=== PATIENT | male | born 1965 | race Caucasian/White ===

== ENCOUNTER 2019-01-22 06:31 | Inpatient (IN) | payer OTHER ==
[2019-01-22] VITALS (17 sets, daily range): BP systolic 91–122; BP diastolic 61–78
[~2019-01-22] VITALS: Ht 165 cm; Wt 90.8 kg
[2019-01-22] MEDS ORDERED: LACTATED RINGERS 1,000 ML IV ONE (06:40)
[2019-01-22 06:56] LABS: BASOPHILS % (AUTO) 0 % (0-10); EOSINOPHILS # (AUTO) 0.1 10^3/uL (0.0-0.3); EOSINOPHILS % (AUTO) 2 % (0-10); HEMATOCRIT 30 % (40-54); HEMOGLOBIN 9.6 G/DL (13.3-17.7); LYMPHOCYTES # (AUTO) 1.9 X 10^3 (1.0-4.0); LYMPHOCYTES % (AUTO) 23 % (12-44); MEAN CORPUSCULAR HEMOGLOBIN 29 PG (25-34); MEAN CORPUSCULAR HGB CONC 32 G/DL (32-36); MEAN CORPUSCULAR VOLUME 90 FL (80-99); MEAN PLATELET VOLUME 9.2 FL (7.4-10.4); MONOCYTES # (AUTO) 1.1 X 10^3 (0.0-1.0); MONOCYTES % (AUTO) 13 % (0-12); NEUTROPHILS # (AUTO) 5.1 X 10^3 (1.8-7.8); NEUTROPHILS % (AUTO) 62 % (42-75); PLATELET COUNT 167 10^3/uL (130-400); RED CELL DISTRIBUTION WIDTH 13.2 % (10.0-14.5); WHITE BLOOD COUNT 8.2 10^3/uL (4.3-11.0)
[2019-01-22] MEDS ORDERED: KETOROLAC 30 MG/ML VIAL IVP STA (07:08)
[2019-01-22 07:09] LABS: INR 1.1 (0.8-1.4); PROTHROMBIN TIME PATIENT 14.4 SEC (12.2-14.7)
[2019-01-22 07:15] LABS: ALANINE AMINOTRANSFERASE 16 U/L (0-55); ALBUMIN 3.6 GM/DL (3.2-4.5); ALKALINE PHOSPHATASE 129 U/L (40-136); AMYLASE 86 U/L (25-125); BILIRUBIN,TOTAL 0.7 MG/DL (0.1-1.0); BUN/CREATININE RATIO 22; CALCIUM 8.2 MG/DL (8.5-10.1); CARBON DIOXIDE 26 MMOL/L (21-32); CHLORIDE 100 MMOL/L (98-107); CREATININE SERUM 0.95 MG/DL (0.60-1.30); GFR ESTIMATED > 60; GLUCOSE 134 MG/DL (70-105); LIPASE 53 U/L (8-78); MAGNESIUM 2.3 MG/DL (1.6-2.4); POTASSIUM 3.8 MMOL/L (3.6-5.0); SODIUM 136 MMOL/L (135-145); TOTAL PROTEIN 6.9 GM/DL (6.4-8.2)
--- NOTE | 2019-01-22 07:31 | Diagnostic Imaging Report ---
PATIENT HISTORY: Left shoulder pain radiating to the left chest. TECHNIQUE: Single frontal view of the chest COMPARISON: None FINDINGS: Linear opacities are seen at the left lung base. Lung volumes are normal. There is no pleural effusion or pneumothorax. The cardiac silhouette is normal in size. IMPRESSION: Linear opacities at the left lung base may represent atelectasis or infiltrate. Dictated by: Dictated on workstation # [id number]
[2019-01-22] MEDS ORDERED: CATHETER FLUSH 10 ML SYR IV PRN (07:45)
[2019-01-22] MEDS ORDERED: HOLD METFORMIN - RECEIVED CONTRAST 20 ML VIAL IV SCH (07:45)
[2019-01-22] MEDS ORDERED: IOHEXOL 350 MG/ML 100 ML (OMNIPAQUE 350) VIAL IV ONE (07:45)
[2019-01-22] MEDS ORDERED: NS 100 ML (IVPB) BAG IV ONE (07:45)
--- NOTE | 2019-01-22 08:30 | NUR ---
PT REPORTS NO PAIN RELIEF FROM TORADOL.
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
--- NOTE | 2019-01-22 09:00 | Diagnostic Imaging Report ---
PROCEDURE: CT head and CT cervical spine without contrast. TECHNIQUE: Multiple contiguous axial images were obtained through the brain and cervical spine without the use of intravenous contrast. Sagittal and coronal reformations through the cervical spine were then performed. Auto Exposure Controls were utilized during the CT exam to meet ALARA standards for radiation dose reduction. INDICATION: Left eye bruising status post injury. COMPARISON: None. FINDINGS: CT head: Ventricles and cortical sulci are normal in size and contour. There is no midline shift or mass-effect. No acute intra-axial hemorrhage is seen. There are no abnormal areas of increased or decreased density to suggest acute hemorrhage or edema. No extra-axial masses or collections are present. The bony calvarium is intact. The visualized paranasal sinuses show mild scattered mucosal thickening. The mastoid air cells are clear. CT cervical spine: Static alignment of the cervical spine is maintained. There is no significant sindy or retrolisthesis. There is no evidence of jumped facets. Vertebral body heights are preserved. There is no evidence of acute fracture. There are mild multilevel degenerative changes consistent with mild intervertebral disc height loss with small anterior and posterior disc osteophyte complex formations. Pre and paravertebral soft tissue structures are within normal limits. Included portions of the lung apices are clear. IMPRESSION: 1. No acute intracranial abnormality. No CT evidence of mass, acute infarct or intracranial hemorrhage. 2. No acute fracture or dislocation of the cervical spine. 3. Mild multilevel degenerative changes of the cervical spine. Dictated by: Dictated on workstation # [id number]
[2019-01-22] MEDS ORDERED: morphine INJ 10 MG/ML 1ML (SYR OR VIAL) IVP ONE ×2 (09:15→14:00)
--- NOTE | 2019-01-22 09:20 | Diagnostic Imaging Report ---
EXAMINATION: CT Chest, Abdomen and Pelvis with intravenous contrast. TECHNIQUE: Multiple contiguous axial images were obtained through the chest, abdomen and pelvis after the uneventful administration of intravenous contrast. All CT scans use one or more of the following dose optimizing techniques: automated exposure control, MA and/or KvP adjustment based on a patient size and exam type, or iterative reconstruction. INDICATION: Chest pain. COMPARISON: None available. FINDINGS: There is left base atelectasis with a small left pleural effusion. No pleural effusion or pneumothorax. No suspicious nodules. Heart size is normal. No pericardial effusion. Aorta is normal in caliber. There is no axillary or supraclavicular lymphadenopathy. There is no mediastinal lymphadenopathy. The liver is normal. No focal liver lesions are seen. Gallbladder is decompressed. No biliary ductal dilation. Pancreas and adrenal glands are normal. There is a traumatic injury to the spleen with a laceration of approximately 5 cm in length extending towards the splenic hilum along the superior aspect. This produces a subcapsular hematoma and an area of devascularization of the upper portion of the spleen. There is perisplenic hematoma with blood also seen around the liver and along the left pericolic gutter. No contrast collections are seen on the delayed images to indicate active extravasation. Hilar vessels remain opacified. There is a left posterior 10th rib fracture. The kidneys are normal. There is no hydronephrosis. Urinary bladder is normal. There are no dilated loops of large or small bowel. No obstruction or inflammation. No abdominal or pelvic lymphadenopathy. Aorta is normal in caliber without aneurysm. There are no suspicious osseus lesions. IMPRESSION: 1. Splenic injury of the least grade 3 with a laceration of greater than 4 cm in depth and a ruptured subcapsular/intraparenchymal hematoma with moderate amount of hemoperitoneum. 2. Left posterior 10th rib fracture. Critical findings communicated to Dr. Welsh by Dr. Mendoza on 01/22/2019 at 9:15 AM. Dictated by: Dictated on workstation # [id number]
--- NOTE | 2019-01-22 10:00 | NUR ---
CAITLYN HERE IN ROOM ASSESSING PT AT THIS TIME.
[2019-01-22] MEDS ORDERED: ceFAZolin INJECTION 2,000 MG ONE (10:21)
[2019-01-22] MEDS ORDERED: fentaNYL INJECTION 100 MCG/2 ML AMP ONE (10:25)
[2019-01-22] MEDS ORDERED: proPOfol 200 MG/20 ML (DIPRIVAN) VIAL IV ONE (10:25)
[2019-01-22] MEDS ORDERED: LIDOCAINE PF 2% 5 ML (XYLOCAINE) VIAL ONE (10:25)
[2019-01-22] MEDS ORDERED: MIDAZOLAM 2 MG/2 ML (VERSED) VIAL ONE (10:25)
--- NOTE | 2019-01-22 10:27 | NUR ---
MELCHOR CREW HERE FOR PT AT THIS TIME.
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
[2019-01-22] MEDS ORDERED: ROCURONIUM 10 MG/ML 5 ML SYRINGE IV ONE ×3 (10:41→12:31)
[2019-01-22] MEDS ORDERED: NEOSTIGMINE 3 MG/3 ML VIAL ONE (10:41)
[2019-01-22] MEDS ORDERED: SEVOFLURANE (ULTANE) 15 ML INHAL SOLN ONE ×11 (10:41→13:12)
[2019-01-22] MEDS ORDERED: SUCCINYLCHOLINE INJ 100 MG/5 ML SYR ONE (10:41)
[2019-01-22] MEDS ORDERED: ONDANSETRON 4 MG/2 ML (SDV) Z0FRAN ONE (10:41)
[2019-01-22] MEDS ORDERED: GLYCOPYRROLATE 0.2 MG/ML (ROBINUL) 2 ML VIAL ONE (10:41)
[2019-01-22] MEDS ORDERED: DEXAMETHASONE 10 MG/ML (DECADRON) 1 ML VIAL ONE (10:41)
[2019-01-22] MEDS: LACTATED RINGERS 1,000 ML IV PRN ×5 (10:41→20:07)
[2019-01-22] MEDS ORDERED: BUPIVACAINE 0.5% 30 ML (SENSORCAINE) VIAL ONE (13:02)
[2019-01-22] MEDS ORDERED: morphine INJ 10 MG/ML 1ML (SYR OR VIAL) ONE (13:18)
--- NOTE | 2019-01-22 13:31 | Progress Note-Post Operative ---
Post-Operative Progess Note Surgeon (s)/Bakery Worker (s) Surgeon BRONWYN BRADY DO Bakery Worker: Dr. Thomas Pre-Operative Diagnosis hemoperitoneum, splenic injury Post-Operative Diagnosis same Procedure & Operative Findings Date of Procedure 01/22/19 Procedure Performed/Findings exploratory laparotomy splenectomy Anesthesia Type gen Estimated Blood Loss Estimated blood loss (mL): 1000 Specimens/Packing Specimens Removed spleen Packing: floseal, surgiseal, gel foam BRONWYN BRADY DO Jan 22, 2019 13:31 POS
[2019-01-22] MEDS ORDERED: NS IV 500 ML 500 ML IV PRN (13:45)
[2019-01-22] MEDS ORDERED: fentaNYL INJECTION 100 MCG/2 ML AMP IVP ONE (14:00)
[2019-01-22] MEDS ORDERED: ONDANSETRON 4 MG/2 ML (SDV) Z0FRAN IVP PRN ×2 (14:00→20:00)
[2019-01-22] MEDS ORDERED: HYDROmorphone 2 MG/ML VIAL (DILAUDID) IV ONE (14:00)
--- NOTE | 2019-01-22 14:22 | Anesthesia-General Post-Op ---
General Patient Condition Mental Status/LOC: Same as Preop Cardiovascular: Satisfactory Nausea/Vomiting: Absent Respiratory: Satisfactory Pain: Controlled Complications: Absent Post Op Complications Complications None Follow Up Care/Instructions Patient Instructions None needed. Anesthesia/Patient Condition Patient Condition Patient is doing well, no complaints, stable vital signs, no apparent adverse anesthesia problems. No complications reported per nursing. JAC GERMAN CRNA Jan 22, 2019 14:22 POS
[2019-01-22] MEDS: ceFAZolin 2 GM IV Premixed 50 ML IV SCH ×2 (14:40→18:04)
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
[2019-01-22] MEDS ORDERED: ACET-2267 PO (16:03)
[2019-01-22] MEDS ORDERED: IBUP-30 PO (16:03)
[2019-01-22] MEDS ORDERED: FLU QUADRIvalent (5+ YOA) 2019-2020 (AFLURIA) 0.5 ML IM ONE (19:15)
[2019-01-22] MEDS: LACTATED RINGERS 1,000 ML IV SCH (20:10)
[2019-01-22] MEDS: morphine INJ 4 MG/ML 1 ML (VIAL/SYRINGE) IVP PRN ×2 (20:10→22:09)
[2019-01-23] VITALS (24 sets, daily range): BP systolic 95–143; BP diastolic 66–92
[2019-01-23] MEDS: ceFAZolin 2 GM IV Premixed 50 ML IV SCH (03:06)
[2019-01-23 03:18] LABS: BASOPHILS % (AUTO) 0 % (0-10); EOSINOPHILS % (AUTO) 0 % (0-10); HEMATOCRIT 30 % (40-54); HEMOGLOBIN 9.9 G/DL (13.3-17.7); LYMPHOCYTES % (AUTO) 6 % (12-44); MEAN CORPUSCULAR HEMOGLOBIN 30 PG (25-34); MEAN CORPUSCULAR HGB CONC 34 G/DL (32-36); MEAN CORPUSCULAR VOLUME 88 FL (80-99); MEAN PLATELET VOLUME 10.2 FL (7.4-10.4); MONOCYTES # (AUTO) 1.8 X 10^3 (0.0-1.0); MONOCYTES % (AUTO) 11 % (0-12); NEUTROPHILS # (AUTO) 13.2 X 10^3 (1.8-7.8); NEUTROPHILS % (AUTO) 82 % (42-75); PLATELET COUNT 129 10^3/uL (130-400)
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
[2019-01-23 03:37] LABS: BUN/CREATININE RATIO 25; CALCIUM 7.7 MG/DL (8.5-10.1); CARBON DIOXIDE 22 MMOL/L (21-32); CHLORIDE 105 MMOL/L (98-107); CHOLESTEROL 171 MG/DL (< 200); CREATININE SERUM 0.72 MG/DL (0.60-1.30); GFR ESTIMATED > 60; GLUCOSE 122 MG/DL (70-105); HDL CHOLESTEROL 36 MG/DL (40-60); PHOSPHORUS 3.5 MG/DL (2.3-4.7); POTASSIUM 4.5 MMOL/L (3.6-5.0); SODIUM 137 MMOL/L (135-145); TRIGLYCERIDES 93 MG/DL (<150); VLDL CHOLESTEROL 19 MG/DL (5-40)
[2019-01-23] MEDS: morphine INJ 4 MG/ML 1 ML (VIAL/SYRINGE) IVP PRN ×3 (03:37→21:08)
[2019-01-23 03:39] LABS: LYMPHOCYTES % (MANUAL) 8 %; MONOCYTES % (MANUAL) 8 %; NEUTROPHILS % (MANUAL) 84 %
[2019-01-23] MEDS: POTASSIUM CL 10MEQ/50ML IVPB 50 ML IV SCH (06:16)
[2019-01-23] MEDS: LACTATED RINGERS 1,000 ML IV SCH ×3 (06:16→22:34)
[2019-01-23] MEDS: MAGNESIUM 1 GM/100 ML IVPB 100 ML IV SCH (06:17)
[2019-01-23] MEDS: KCL 20 MEQ TAB (K-DUR) PO SCH (06:17)
--- NOTE | 2019-01-23 07:10 | Anesthesia-General Post-Op ---
General Patient Condition Mental Status/LOC: Same as Preop Cardiovascular: Satisfactory Nausea/Vomiting: Absent Respiratory: Satisfactory Pain: Controlled Complications: Absent Post Op Complications Complications None Follow Up Care/Instructions Patient Instructions None needed. Anesthesia/Patient Condition Patient Condition Patient is doing well, no complaints, stable vital signs, no apparent adverse anesthesia problems. No complications reported per nursing. MANINDER MIRAMONTES CRNA Jan 23, 2019 07:10 POS
[2019-01-23] MEDS: HYDROcodone/APAP 5 MG/325 MG (LORTAB) TAB PO PRN ×3 (08:04→17:47)
--- NOTE | 2019-01-23 08:17 | Diagnostic Imaging Report ---
INDICATION: Dyspnea. COMPARISON: 01/22/2019 TECHNIQUE: Single frontal radiograph of the chest dated 01/23/2019 FINDINGS: The cardiac silhouette is within normal limits in size. No significant pulmonary vascular congestion. Persistent left basilar opacities are noted, slightly worsened since the prior examination. The right lung remains clear. Small left pleural effusion suspected. No significant right pleural effusion. No pneumothorax. No acute osseous abnormality. IMPRESSION: Slightly worsening left basilar infiltrate and/or atelectasis with associated tiny left pleural effusion. Dictated by: Dictated on workstation # [id number]
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
--- NOTE | 2019-01-23 15:03 | NUR ---
OPERATIONS M[employer] Social Work student note reviewed and approved.
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
[2019-01-23] MEDS ORDERED: MELATONIN 3 MG TABLET PO PRN (18:45)
[2019-01-23] MEDS ORDERED: ONDANSETRON 4 MG (ZOFRAN) ORAL DISSOLVE TAB PO PRN (18:45)
[2019-01-23] MEDS ORDERED: ACETAMINOPHEN 325 MG TABLET PO PRN (18:45)
[2019-01-24] VITALS (14 sets, daily range): BP systolic 99–123; BP diastolic 64–87
[2019-01-24] MEDS: HYDROcodone/APAP 5 MG/325 MG (LORTAB) TAB PO PRN (01:39)
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
[2019-01-24 03:52] LABS: BASOPHILS % (AUTO) 0 % (0-10); EOSINOPHILS # (AUTO) 0.1 10^3/uL (0.0-0.3); EOSINOPHILS % (AUTO) 1 % (0-10); HEMATOCRIT 28 % (40-54); HEMOGLOBIN 9.1 G/DL (13.3-17.7); LYMPHOCYTES # (AUTO) 2.2 X 10^3 (1.0-4.0); LYMPHOCYTES % (AUTO) 14 % (12-44); MEAN CORPUSCULAR HEMOGLOBIN 29 PG (25-34); MEAN CORPUSCULAR HGB CONC 33 G/DL (32-36); MEAN CORPUSCULAR VOLUME 89 FL (80-99); MEAN PLATELET VOLUME 9.7 FL (7.4-10.4); MONOCYTES # (AUTO) 2.6 X 10^3 (0.0-1.0); MONOCYTES % (AUTO) 16 % (0-12); NEUTROPHILS # (AUTO) 11.7 X 10^3 (1.8-7.8); NEUTROPHILS % (AUTO) 70 % (42-75); PLATELET COUNT 322 10^3/uL (130-400); RED CELL DISTRIBUTION WIDTH 13.5 % (10.0-14.5); WHITE BLOOD COUNT 16.6 10^3/uL (4.3-11.0)
[2019-01-24] MEDS: morphine INJ 4 MG/ML 1 ML (VIAL/SYRINGE) IVP PRN ×2 (04:04→13:34)
[2019-01-24 04:12] LABS: BUN/CREATININE RATIO 21; CALCIUM 7.7 MG/DL (8.5-10.1); CARBON DIOXIDE 25 MMOL/L (21-32); CHLORIDE 102 MMOL/L (98-107); CREATININE SERUM 0.67 MG/DL (0.60-1.30); GFR ESTIMATED > 60; GLUCOSE 94 MG/DL (70-105); MAGNESIUM 2.2 MG/DL (1.6-2.4); PHOSPHORUS 2.2 MG/DL (2.3-4.7); SODIUM 135 MMOL/L (135-145)
[2019-01-24] MEDS: LACTATED RINGERS 1,000 ML IV SCH ×3 (04:14→16:56)
[2019-01-24] MEDS: MAGNESIUM 1 GM/100 ML IVPB 100 ML IV SCH (04:20)
[2019-01-24] MEDS: POTASSIUM CL 10MEQ/50ML IVPB 50 ML IV SCH (04:20)
[2019-01-24] MEDS: KCL 20 MEQ TAB (K-DUR) PO SCH (04:20)
[2019-01-24] MEDS ORDERED: NS (IVPB) 100 ML ONE (06:33)
[2019-01-24] MEDS ORDERED: PIPERACILLIN/TAZO 4.5 GM VIAL (ZOSYN) IV ONE (06:33)
[2019-01-24] MEDS ORDERED: PIPERACILLIN/TAZO 4.5 GM/NS 100 ML IV ONE ×2 (06:45)
[2019-01-24 06:49] LABS: BILIRUBIN,URINE NEGATIVE (NEGATIVE); CLARITY,URINE CLEAR; COLOR,URINE YELLOW; GLUCOSE, URINE (UA) NEGATIVE (NEGATIVE); KETONES,URINE NEGATIVE (NEGATIVE); LEUKOCYTE ESTERASE ,URINE TRACE (NEGATIVE); NITRITE,URINE NEGATIVE (NEGATIVE); PROTEIN,URINE NEGATIVE (NEGATIVE)
[2019-01-24 07:12] LABS: BACTERIA,URINE NEGATIVE /HPF; SQUAMOUS EPITHELIAL CELL,UR 0-2 /HPF; WBC,URINE RARE /HPF
--- NOTE | 2019-01-24 07:39 | Progress Note - Surgery ---
SHIVA JONES,MED STUDENT 01/24/19 0739: Subjective Date Seen by a Provider: Jan 24, 2019 Time Seen by a Provider: 07:05 Subjective/Events-last exam Patient seen and examined. Postop day 2 from splenectomy he reports some continued tenderness over the incision but says this is improved from yesterday and is mostly with movement. He is sitting up on the side of the bed and is able to get up to use the urinal with assistance. Has passed flatus but has not had a bm. He is using the IS as instructed, and is tolerating clear liquids with no nausea. CXR from today reveals some worsened LLL infiltrate and atelectasis. Currently is on 2L O2. Denies SOB, nausea/vomiting, chest pain. Objective Exam Vital Signs Date Time Temp Pulse Resp B/P (MAP) Pulse Ox O2 Delivery O2 Flow Rate FiO2 01/24/19 06:00 98 19 104/75 (85) 99 Nasal Cannula 2.00 01/24/19 05:00 104 12 105/77 (86) 97 Nasal Cannula 2.00 01/24/19 04:00 100 Nasal Cannula 2.00 01/24/19 04:00 103 30 102/73 (83) 99 Nasal Cannula 2.00 01/24/19 03:00 101 18 117/69 (85) 99 Nasal Cannula 2.00 01/24/19 02:00 105 22 110/73 (85) 98 Nasal Cannula 2.00 01/24/19 01:00 101 19 123/80 (94) 99 Nasal Cannula 2.00 01/24/19 01:00 110 01/24/19 00:00 100 Nasal Cannula 2.00 01/24/19 00:00 99 21 118/87 (97) 99 Nasal Cannula 2.00 01/23/19 23:00 102 23 115/84 (94) 99 Nasal Cannula 2.00 01/23/19 22:00 107 22 116/79 (91) 98 Nasal Cannula 2.00 01/23/19 21:00 105 24 107/78 (88) 97 Nasal Cannula 2.00 01/23/19 20:00 100 Nasal Cannula 2.00 01/23/19 20:00 37.1 01/23/19 20:00 110 23 117/76 (90) 99 Nasal Cannula 2.00 01/23/19 19:00 93 17 143/92 (109) 92 Nasal Cannula 2.00 01/23/19 19:00 108 01/23/19 18:00 105 22 117/77 (90) 98 Nasal Cannula 2.00 01/23/19 17:00 107 26 113/79 (90) 99 Nasal Cannula 2.00 01/23/19 16:00 100 Nasal Cannula 2.00 01/23/19 16:00 37.0 01/23/19 16:00 112 24 118/85 (96) 99 Nasal Cannula 2.00 01/23/19 15:00 113 24 109/83 (92) 97 Nasal Cannula 2.00 01/23/19 14:00 112 25 112/76 (88) 98 Nasal Cannula 2.00 01/23/19 13:00 113 26 114/84 (94) 99 Nasal Cannula 2.00 01/23/19 12:55 114 01/23/19 12:00 37.1 01/23/19 12:00 100 Nasal Cannula 2.00 01/23/19 12:00 105 20 114/73 (87) 99 Nasal Cannula 2.00 01/23/19 11:00 105 23 102/74 (83) 99 Nasal Cannula 2.00 01/23/19 10:00 105 15 110/66 (81) 100 Nasal Cannula 2.00 01/23/19 09:00 109 19 97/72 (80) 98 Nasal Cannula 2.00 01/23/19 08:07 37.1 01/23/19 08:04 37.1 01/23/19 08:00 111 24 100/70 (80) 98 Nasal Cannula 2.00 01/23/19 08:00 100 Nasal Cannula 2.00 I & O 01/24/19 07:00 Intake Total 1660 ml Output Total 3250 ml Balance -1590 ml Capillary Refill : Less Than 3 SecondsLess Than 3 Seconds General Appearance: No Apparent Distress HEENT: PERRL/EOMI; No Scleral Icterus (L), No Scleral Icterus (R) Neck: Full Range of Motion, Normal Inspection Respiratory: Chest Non Tender, Lungs Clear, No Accessory Muscle Use, No Respiratory Distress, Other (tender to the left chest wall) Cardiovascular: Normal Peripheral Pulses, Tachycardia Peripheral Pulses: 2+ Dorsalis Pedis (R), 2+ Left Dors-Pedis (L), 2+ Radial Pulses (R), 2+ Radial Pulses (L) Gastrointestinal: No distended, No guarding; tenderness (at midline incision), other (midline abdominal incision with dressing in place) Extremity: Normal Inspection, Normal Range of Motion, Non Tender Neurologic/Psychiatric: Alert, Oriented x3, Normal Mood/Affect Skin: Normal Color, Warm/Dry Lymphatic: No Adenopathy Results Lab Laboratory Tests 01/24/19 03:40: White Blood Count 16.6H, Red Blood Count 3.14L, Hemoglobin 9.1L, Hematocrit 28L, Mean Corpuscular Volume 89, Mean Corpuscular Hemoglobin 29, Mean Corpuscular Hemoglobin Concent 33, Red Cell Distribution Width 13.5, Platelet Count 322, Mean Platelet Volume 9.7, Neutrophils (%) (Auto) 70, Lymphocytes (%) (Auto) 14, Monocytes (%) (Auto) 16H, Eosinophils (%) (Auto) 1, Basophils (%) (Auto) 0, Neutrophils # (Auto) 11.7H, Lymphocytes # (Auto) 2.2, Monocytes # (Auto) 2.6H, Eosinophils # (Auto) 0.1, Basophils # (Auto) 0.0, Sodium Level 135, Potassium Level 4.0, Chloride Level 102, Carbon Dioxide Level 25, Anion Gap 8, Blood Urea Nitrogen 14, Creatinine 0.67, Estimat Glomerular Filtration Rate > 60, BUN/Creatinine Ratio 21, Glucose Level 94, Calcium Level 7.7L, Phosphorus Level 2.2L, Magnesium Level 2.2 01/24/19 06:35: Urine Color YELLOW, Urine Clarity CLEAR, Urine pH 7.0, Urine Specific [place] <=1.005, Urine Protein NEGATIVE, Urine Glucose (UA) NEGATIVE, Urine Ketones NEGATIVE, Urine Nitrite NEGATIVE, Urine Bilirubin NEGATIVE, Urine Urobilinogen 0.2, Urine Leukocyte Esterase TRACE, Urine RBC (Auto) NEGATIVE, Urine RBC NONE, Urine WBC RARE, Urine Squamous Epithelial Cells 0-2, Urine Crystals NONE, Urine Bacteria NEGATIVE, Urine Casts NONE, Urine Mucus NEGATIVE, Urine Culture Indicated NO Microbiology 01/22/19 MRSA Screen - Final, Complete MRSA not isolated Assessment/Plan Assessment/Plan Assessment/Plan S/p ex lap with splenectomy LLL infiltrate and atelectasis Leukocytosis Left 10th rib fracture Start Zosyn due to CXR findings Administer vaccination regimen whey they are available Continue IS use, encourage ambulation as tolerated Continue to monitor leukocytosis Continue clear liquids, consider advancing diet soon Clinical Quality Measures AMI/AHF: ASA po Prior to arrival: Yes DVT/VTE Risk/Contraindication: Risk Factor Score Per Nursin RFS Level Per Nursing on Admit: 4+=Very High BRONWYN JOHNSON DO 01/24/192114: Subjective Subjective/Events-last exam Pain controlled. Laying in bed. Not using incentive spirometer much. Not getting out of bed. Tolerating diet. Chest worsened LLL infiltrate denies fever sweats chills shortness of breath or chest pain. 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 Norm as Tested Skin: Normal Color, Warm/Dry Lymphatic: No Adenopathy Assessment/Plan Assessment/Plan Assessment/Plan S/p ex lap with splenectomy LLL infiltrate and atelectasis Leukocytosis Left 10th rib fracture anemia Zosyn MAT protocol diet as tolerates PT instructed on IS use and importance Pain control minimal drop in hgb will follow if stable tomorrow start anticoagulation for dvt prophylaxis otherwise using scd's increase activity Supervisory-Addendum Brief Verification & Attestation Participated in pt care: history, MDM, physical Personally performed: exam, history, MDM, supervision of care Care discussed with: Medical Student Procedures: n/a Results interpretation: Verified all documentation Verification and Attestation of Medical Student E/M Service A medical student performed and documented this service in my presence. I reviewed and verified all information documented by the medical student and made modifications to such information, when appropriate. I personally performed the physical exam and medical decision making. Bronwyn Johnson, Jan 24, 2019,21:16 SHIVA JONES,MED STUDENT Jan 24, 2019 07:39 BRONWYN YANG DO Jan 24, 2019 21:15 POS
--- NOTE | 2019-01-24 08:47 | Diagnostic Imaging Report ---
INDICATION: Shortness of breath Portable chest 4:01 AM There is increased density at the left lung base that could be infiltrate or atelectasis. This has increased from the previous day. IMPRESSION: Increasing left basilar consolidation could be infiltrate or atelectasis. Dictated by: Dictated on workstation # [id number]
--- NOTE | 2019-01-24 09:27 | Diagnostic Imaging Report ---
INDICATION: Left pleural effusion. Sonographic interrogation of the left posterior thorax was performed to evaluate for pleural fluid. Approximately 272 mL of fluid was visualized. IMPRESSION: Moderate-sized left pleural effusion. Dictated by: Dictated on workstation # [id number]
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
[2019-01-24] MEDS: PIPERACILLIN/TAZOBACTAM (BULK) 4.5 GM in NS (IVPB) 100 ML IV SCH ×2 (13:20→19:48)
--- NOTE | 2019-01-24 14:29 | NUR ---
Visit by Pmp Certified Project Managerasha Rivera in ICU: Engaged in rapport building and educated about Spiritual Care Services. The pt shared he is feeling better since the removal of his spleen. Sitting in chair.
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
[2019-01-24] MEDS ORDERED: RT-ALBUTEROL/IPRATROPIUM 3 ML (DUONEB) VIAL INH PRN (17:00)
--- NOTE | 2019-01-24 17:06 | NUR ---
adriel Oscar brought patient to room 424-1 at this time.
[2019-01-24] MEDS: RT-ALBUTEROL/IPRATROPIUM 3 ML (DUONEB) VIAL INH SCH (20:37)
[2019-01-25] VITALS: BP 110/72
[2019-01-25] MEDS: RT-ALBUTEROL/IPRATROPIUM 3 ML (DUONEB) VIAL INH SCH ×4 (02:19→22:22)
[2019-01-25 03:48] LABS: BASOPHILS % (AUTO) 0 % (0-10); EOSINOPHILS # (AUTO) 0.3 10^3/uL (0.0-0.3); EOSINOPHILS % (AUTO) 2 % (0-10); HEMATOCRIT 28 % (40-54); HEMOGLOBIN 9.1 G/DL (13.3-17.7); LYMPHOCYTES # (AUTO) 1.9 X 10^3 (1.0-4.0); LYMPHOCYTES % (AUTO) 12 % (12-44); MEAN CORPUSCULAR HEMOGLOBIN 29 PG (25-34); MEAN CORPUSCULAR HGB CONC 32 G/DL (32-36); MEAN CORPUSCULAR VOLUME 90 FL (80-99); MEAN PLATELET VOLUME 9.5 FL (7.4-10.4); MONOCYTES # (AUTO) 2.2 X 10^3 (0.0-1.0); MONOCYTES % (AUTO) 13 % (0-12); NEUTROPHILS # (AUTO) 11.7 X 10^3 (1.8-7.8); NEUTROPHILS % (AUTO) 73 % (42-75); PLATELET COUNT 450 10^3/uL (130-400); RED CELL DISTRIBUTION WIDTH 13.2 % (10.0-14.5); WHITE BLOOD COUNT 16.1 10^3/uL (4.3-11.0)
[2019-01-25 04:00] VITALS: BP 135/84
[2019-01-25] MEDS: PIPERACILLIN/TAZOBACTAM (BULK) 4.5 GM in NS (IVPB) 100 ML IV SCH ×2 (04:17→11:58)
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
--- NOTE | 2019-01-25 07:33 | Progress Note - Surgery ---
[facility] 01/25/19 0733: Subjective Date Seen by a Provider: Jan 25, 2019 Time Seen by a Provider: 07:00 Subjective/Events-last exam Pt is alert and oriented without distress. No family at bedside. Pt states he is doing alot better. Pain is decreased compared to yesterday He has been up and moving and is passing flatus but has not had a bowel movement yet. Urinating without issue Tolerating clears diet Patient denied chest pain, N/V, and F/C. stated he has some shortness of breath WBC are coming down. Today was 16.1 compared to yesterday of 16.6 HgB is stable at 9.1 Review of Systems General: No Chills, No Night Sweats Pulmonary: No Cough, No Pleuritic Chest Pain Cardiovascular: No: Chest Pain, Palpitations Gastrointestinal: No: Nausea, Vomiting, Abdominal Pain Objective Exam Vital Signs Date Time Temp Pulse Resp B/P (MAP) Pulse Ox O2 Delivery O2 Flow Rate FiO2 01/25/19 04:00 37.2 94 17 135/84 (101) 97 Room Air 01/25/19 02:19 91 Room Air 01/25/19 00:00 36.9 98 20 110/72 (85) 96 Room Air 01/24/19 20:45 37.0 01/24/19 20:37 92 Room Air 01/24/19 20:00 38.3 100 20 115/64 (81) 94 Room Air 01/24/19 19:49 38.3 01/24/19 19:46 100 Room Air 01/24/19 16:00 100 Nasal Cannula 2.00 01/24/19 16:00 36.8 100 21 117/75 (89) 95 Room Air 01/24/19 15:10 98 Room Air 01/24/19 15:10 36.7 104 98 21 01/24/19 13:00 107 31 111/83 (92) 100 Nasal Cannula 2.00 01/24/19 13:00 102 01/24/19 12:00 96 19 116/78 (91) 100 Nasal Cannula 2.00 01/24/19 12:00 100 Nasal Cannula 2.00 01/24/19 12:00 36.7 01/24/19 11:00 101 14 115/76 (89) 100 Nasal Cannula 2.00 01/24/19 10:00 107 24 98 Nasal Cannula 2.00 01/24/19 09:00 103 16 99 Nasal Cannula 2.00 01/24/19 08:00 100 Nasal Cannula 2.00 01/24/19 08:00 99 19 91 Nasal Cannula 2.00 I & O 01/25/19 07:00 Intake Total 2600 ml Output Total 1500 ml Balance 1100 ml Capillary Refill : Less Than 3 SecondsLess Than 3 Seconds General Appearance: No Apparent Distress HEENT: PERRL/EOMI Neck: Normal Inspection Respiratory: Lungs Clear, No Accessory Muscle Use, No Respiratory Distress, Other (tender to the left chest wall) Cardiovascular: Regular Rate, Rhythm, Tachycardia Peripheral Pulses: 2+ Dorsalis Pedis (R), 2+ Left Dors-Pedis (L), 2+ Radial Pulses (R), 2+ Radial Pulses (L) Gastrointestinal: tenderness (pt had some LLQ tenderness but overall pain has improved since yesterday. Wound shows no breathrough and there is no erythema around bandage. ), other (midline abdominal incision c/d/i) Extremity: Normal Inspection, Normal Range of Motion, Non Tender Neurologic/Psychiatric: Alert, Oriented x3, Normal Mood/Affect Skin: Normal Color, Warm/Dry Lymphatic: No Adenopathy Results Lab Laboratory Tests 01/25/19 03:25: White Blood Count 16.1H, Red Blood Count 3.15L, Hemoglobin 9.1L, Hematocrit 28L, Mean Corpuscular Volume 90, Mean Corpuscular Hemoglobin 29, Mean Corpuscular Hemoglobin Concent 32, Red Cell Distribution Width 13.2, Platelet Count 450H, Mean Platelet Volume 9.5, Neutrophils (%) (Auto) 73, Lymphocytes (%) (Auto) 12, Monocytes (%) (Auto) 13H, Eosinophils (%) (Auto) 2, Basophils (%) (Auto) 0, Neutrophils # (Auto) 11.7H, Lymphocytes # (Auto) 1.9, Monocytes # (Auto) 2.2H, Eosinophils # (Auto) 0.3, Basophils # (Auto) 0.0 Microbiology 01/22/19 MRSA Screen - Final, Complete MRSA not isolated Assessment/Plan Assessment/Plan Assessment/Plan S/p ex lap with splenectomy LLL infiltrate and atelectasis Leukocytosis Left 10th rib fracture anemia - Continue ABX regimen and monitor labs - continue MAT protocol - Patient is still on clears consider advancing to soft diet. - Continue PT - Reminded pt to us IS - HgB is stable at 9.1, continue mechanical DVT prophylaxis will consider medicinal management. Clinical Quality Measures AMI/AHF: ASA po Prior to arrival: Yes DVT/VTE Risk/Contraindication: Risk Factor Score Per Nursin RFS Level Per Nursing on Admit: 4+=Very High BRONWYN JOHNSON DO 01/25/191938: Subjective Subjective/Events-last exam Feeling better. Pain improving. Using incentive spirometer. + bm. Hgb stable. WBC 16.1. Tolerating diet. Denies any new complaints. Denies n/v fever sweats chills shortness of breath or chest pain at this time. Objective Exam General Appearance: No Apparent Distress HEENT: PERRL/EOMI Neck: Normal Inspection Respiratory: No Accessory Muscle Use, No Respiratory Distress, Other (tender to the left chest wall) Cardiovascular: Tachycardia Gastrointestinal: tenderness (c/d/i, incisional tenderness) Neurologic/Psychiatric: Alert, Oriented x3, Normal Mood/Affect Skin: Normal Color, Warm/Dry Lymphatic: No Adenopathy Assessment/Plan Assessment/Plan Assessment/Plan S/p ex lap with splenectomy LLL infiltrate and atelectasis Leukocytosis Left 10th rib fracture anemia continue abx diet as tolerates vaccines ordered hgb stable scd's and lovenox dvt prophylaxis physical therapy encouraged IS home soon Supervisory-Addendum Brief Verification & Attestation Participated in pt care: history, MDM, physical Personally performed: exam, history, MDM, supervision of care Care discussed with: Medical Student Procedures: n/a Results interpretation: Verified all documentation Verification and Attestation of Medical Student E/M Service A medical student performed and documented this service in my presence. I reviewed and verified all information documented by the medical student and made modifications to such information, when appropriate. I personally performed the physical exam and medical decision making. Bronwyn Johnson, Jan 25, 2019,19:[address] [facility] Jan 25, 2019 07:33 BRONWYN YANG DO Jan 25, 2019 19:39 POS
--- NOTE | 2019-01-25 07:36 | Diagnostic Imaging Report ---
INDICATION: Dyspnea. Comparison made with prior examination 01/24/2019. FINDINGS: There is left base infiltrate and small left pleural effusion. Heart size is normal. Right lung is clear. There is no pneumothorax. Mediastinum is unremarkable. IMPRESSION: Left basilar infiltrate and small left pleural effusion. Dictated by: Dictated on workstation # [id number]
[2019-01-25 08:00] VITALS: BP 113/68
[2019-01-25] MEDS ORDERED: HAEMOPH B POLY CONJ-TET TOX/PF 0.5 ML/10 MCG SOLN IM ONE ×2 (09:00)
--- NOTE | 2019-01-25 10:56 | NUR ---
CM/SS following up with the patient. The patient verbalized that he is feeling good today. He reports that he is not having any symptoms of withdraw. The patient stated that he uses "meth like his coffee" in the mornings and then does not use again that day. He verbalized he does not use it for pain control and it does not affect his ability to function. The patient stated that he does not have any suicidal thoughts. CM/SS went back over options for the outpatient drug and alcohol treatment options and patient stated that "he was good". Will continue to follow to assess needs. Addendum: 01/25/19 at 1640 by ERMA MISHRA JB Social work note reviewed and approved
[2019-01-25] MEDS ORDERED: PNEUMOCOCCAL VACCINE 0.5 ML/25 MCG VIAL IM ONE (11:30)
[2019-01-25 12:00] VITALS: BP 115/73
[2019-01-25] MEDS ORDERED: [UNRECOGNIZED DRUG - OTHER] SQ ONE (12:00)
--- NOTE | 2019-01-25 13:39 | NUR ---
RD ASSESSMENT PMHx: polysubstance use (methamphetamine); no other significant PMHx PT INTERACTION: Pt was awake and pleasant during nutrition assessment. Pt states current appetite is "getting better" and had been poor for some time. Note pt avg PO intake is 50-75% x1d, per chart review. Pt states following a regular diet at home, and currently has no issues with chewing/swallowing food. Pt states no recent issues with n/v/c/d at this time, and last BM was prior to admit (pt could not give a day). Note no BM recorded and pt not currently on bowel regimen, per chart review. Pt states no recent wt changes. Note unable to determine recent wt hx, per chart review. Upon visual exam, pt appears to well nourished with no visible signs of muscle/fat wasting and BMI of 33.4. ABNORMAL NUTRITION-RELATED LAB VALUES: Ca 7.7 (L); phos 2.2 (L) Est. kcal needs: 5177-2150 kcal (15-20 kcal/kg) Est. Pro needs: 73-91 g Pro (0.8-1.0 g Pro/kg) PES STATEMENT: Inadequate oral intake (NI-2.1) related to loss of appetite as evidenced by pt interview INTERVENTION: Continue with current diet order of Clear Liquid diet. Would recommend advancing diet, as tolerated and as medically able. Would recommend repletion of phos, as current levels are low. Will continue to follow reassess as pt needs and status change. MONITOR/EVALUATE: PO Intake; Plan of Care; Hydration Status; Weight Status; Lab Values Pankaj Fajardo, MS, RD, LD
[2019-01-25] MEDS ORDERED: cefTRIAXone FOR IV USE 2,000 MG in WATER (STERILE) FOR INJECTION 20 ML IV NR (15:00)
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
[2019-01-25] MEDS ORDERED: ENOXAPARIN 40 MG/0.4 ML (LOVENOX) SYR SC SCH (15:30)
[2019-01-25 16:50] VITALS: BP 127/72
[2019-01-25 20:40] VITALS: BP 130/76
[2019-01-26 00:12] VITALS: BP 119/69
[2019-01-26] MEDS: RT-ALBUTEROL/IPRATROPIUM 3 ML (DUONEB) VIAL INH SCH ×4 (02:47→15:13)
[2019-01-26 04:00] VITALS: BP 131/79
[2019-01-26 04:11] LABS: BASOPHILS % (AUTO) 0 % (0-10); EOSINOPHILS # (AUTO) 0.2 10^3/uL (0.0-0.3); EOSINOPHILS % (AUTO) 1 % (0-10); HEMATOCRIT 26 % (40-54); HEMOGLOBIN 8.3 G/DL (13.3-17.7); LYMPHOCYTES # (AUTO) 1.9 X 10^3 (1.0-4.0); LYMPHOCYTES % (AUTO) 14 % (12-44); MEAN CORPUSCULAR HEMOGLOBIN 28 PG (25-34); MEAN CORPUSCULAR HGB CONC 32 G/DL (32-36); MEAN CORPUSCULAR VOLUME 89 FL (80-99); MEAN PLATELET VOLUME 9.4 FL (7.4-10.4); MONOCYTES # (AUTO) 1.7 X 10^3 (0.0-1.0); MONOCYTES % (AUTO) 12 % (0-12); NEUTROPHILS # (AUTO) 10.2 X 10^3 (1.8-7.8); NEUTROPHILS % (AUTO) 73 % (42-75); PLATELET COUNT 706 10^3/uL (130-400); RED CELL DISTRIBUTION WIDTH 13.3 % (10.0-14.5)
[2019-01-26 04:31] LABS: BUN/CREATININE RATIO 15; CALCIUM 8.3 MG/DL (8.5-10.1); CARBON DIOXIDE 23 MMOL/L (21-32); CHLORIDE 102 MMOL/L (98-107); CREATININE SERUM 0.74 MG/DL (0.60-1.30); GFR ESTIMATED > 60; GLUCOSE 118 MG/DL (70-105); MAGNESIUM 2.3 MG/DL (1.6-2.4); POTASSIUM 3.5 MMOL/L (3.6-5.0); SODIUM 136 MMOL/L (135-145)
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
--- NOTE | 2019-01-26 07:35 | Diagnostic Imaging Report ---
Indication: Shortness of breath Portable chest 4:16 AM Comparison with the previous day's study. There continues be some increased density at the left lung base that could be infiltrate or atelectasis with possible effusion. Right lung remains clear. IMPRESSION: Stable chest with left basilar consolidation. Dictated by: Dictated on workstation # [id number]
[2019-01-26] MEDS ORDERED: KCL 20 MEQ TAB (K-DUR) PO ONE (07:45)
[2019-01-26 08:00] VITALS: BP 123/73
[2019-01-26] MEDS ORDERED: CEFDINIR 300 MG (OMNICEF) CAP PO SCH (09:00)
[2019-01-26] MEDS ORDERED: CEFD300C3 PO (10:02)
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
[2019-01-26 12:00] VITALS: BP 122/78
--- NOTE | 2019-01-26 12:47 | Discharge Inst-Simple/Standard ---
Discharge Inst-Standard Discharge Medications New, Converted or Re-Newed RX: RX on Chart Patient Instructions/Follow Up Plan of Care/Instructions/FU: 2 weeks Elizabeth Activity as Tolerated: No Discharge Diet: Regular Diet Other Inst to Patient Follow up Appt: Make appointment for 2 week. Obtain a primary care physician. Instructions: No lifting greater than 10 pounds. No strenuous activity. May shower in 24 hours, no tub bath or soaking. Use incentive spirometer at home as directed. No Smoking Skin/Wound Care: Keep area clean and dry. Symptoms to Report: Appetite Changes, Extremity Discoloration, Numbness/Tingling, Swelling Increased, Bleeding Excessive, Eyesight Changes, Pain Increased, Urine Color Change, Constipation(Persistent), Fever over 101 degree F, Pain/Pressure in chest, Urinating Difficulty, Cough Up/Vomit Blood, Heart Beat Irreg/Pounding, Pain/Pressure in jaw, Vaginal Bleeding Increase, Cramps in feet or legs, Lightheadedness, Pain/Pressure in shoulder, Diarrhea(Persistent), Memory Changes Suddenly, Questions/Concerns, Weight gain consecutive days, Dizziness/Fainting, Nausea/Vomiting, Shortness of Breath, Weight gain over 2 pounds If questions or concerns contact your physician Or seek help at emergency department. BRONWYN BRADY DO Jan 26, 2019 12:47 POS
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
[2019-01-26] MEDS ORDERED: ACHD5005 PO (13:07)
[2019-01-26 15:00] VITALS: BP 122/78
--- NOTE | 2019-01-26 15:00 | NUR ---
PATIENT IN W/C WAITING BY ELEVATOR TO LEAVE, THIS RN INFORMED THE PATIENT, THAT EVEN THOUGH HE HAD HIS PHYSICAL PAPERS TO DISCHARGE HOME HE WOULD NEED HIS NARCOTIC SCRIPT BEFORE WE COULD DISCHARGE HIM. PATIENT RETURNED TO ROOM TO WAIT FOR DR. BRADY TO SIGN HIS PRESCRIPTION.
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
== END 2019-01-26 15:20 | disposition home or self-care (01) | DRG 799 ==
LOC: ER 06:34 → SDC 10:06 → ICU 10:06 → UNDOADMIN 10:29 → ICU 10:29 → SDC 10:29 → ICU 14:09 → SDC 14:09 → ICU 01-24 17:11 → 4TH 01-24 17:11 → UNDODISIN 01-26 15:20
PROVIDERS: ADMIT Surgery; ATTEND Surgery
PROC: 0DB80ZX Excision of Small Intestine, Open Approach, Diagnostic (ICD-10-PCS; 2019-01-22)
PROC: 07TP0ZZ Resection of Spleen, Open Approach (ICD-10-PCS; principal; 2019-01-22 10:42)
DX: S36.031A Moderate laceration of spleen, initial encounter (principal); S36.899A Unspecified injury of other intra-abdominal organs, initial encounter; S22.32XA Fracture of one rib, left side, initial encounter for closed fracture; J18.1 Lobar pneumonia, unspecified organism; J98.11 Atelectasis; S00.11XA Contusion of right eyelid and periocular area, initial encounter; S90.01XA Contusion of right ankle, initial encounter; I95.9 Hypotension, unspecified; D64.9 Anemia, unspecified; F17.210 Nicotine dependence, cigarettes, uncomplicated; E87.6 Hypokalemia; F15.10 Other stimulant abuse, uncomplicated; M54.9 Dorsalgia, unspecified; R73.9 Hyperglycemia, unspecified; Y09 Assault by unspecified means; Z23 Encounter for immunization
CPT/HCPCS: 36415; 70450; 71045; 71260; 72125; 74177; 76942; 80048; 80053; 80061; 81000; 82150; 83036; 83690; 83735; 83874; 83880; 84100; 84145; 84484; 85007; 85025; 85027; 85610; 85730; 86850; 86900; 86901; 86920; 87040; 87081; 88305; 90647; 90732; 93005; 93041; 94640; 94664; 94760; 96361; 96374; 96375

== ENCOUNTER 2019-08-21 18:36 | Emergency (ER) | payer OTHER ==
[~2019-08-21] VITALS: Ht 165 cm; Wt 68.0 kg
[~2019-08-21 18:36] MED LIST: ACET-2267 PO; ACHD5005 PO; CEFD300C3 PO; IBUP-30 PO
--- NOTE | 2019-08-21 18:44 | ED Back Pain ---
General Chief Complaint: Back Problems Stated Complaint: BACK PAIN Source of Information: Patient Exam Limitations: No Limitations History of Present Illness Date Seen by Provider: Aug 21, 2019 Time Seen by Provider: 18:43 Initial Comments To ER with rather sudden onset right sided low back pain that began 2 hours prior to arrival. No fever no chills. He has had nausea but no vomiting. Location: Paraspinous Muscles Timing/Duration: 1-3 Hours Pain/Injury Location: Back Associated Symptoms: denies symptoms Allergies and Home Medications Allergies Coded Allergies: No Known Drug Allergies (Unverified , 01/22/19) Home Medications Cefdinir 300 Mg Capsule, 300 MG PO BID Prescribed by: ARRON FUENTES on 01/26/19 1002 Hydrocodone Bit/Acetaminophen 1 Tab Tab, 1 TAB PO Q4H PRN for PAIN-MODERATE (5- 7) Prescribed by: BRONWYN BRADY on 01/26/19 1307 Patient Home Medication List Home Medication List Reviewed: Yes Review of Systems Constitutional: see HPI EENTM: see HPI Respiratory: no symptoms reported Cardiovascular: no symptoms reported Genitourinary: no symptoms reported Musculoskeletal: see HPI Psychiatric/Neurological: No Symptoms Reported Past Qtqtqou-Zczegw-Cvraiw Hx Patient Social History Drug of Choice: METH/OPIATES Type Used: Cigarettes 2nd Hand Smoke Exposure: Yes Recent Hopitalizations: No Immunizations Up To Date Tetanus Booster (TDap): Unknown Seasonal Allergies Seasonal Allergies: No Past Medical History Surgeries: No Respiratory: No Cardiac: No Neurological: No Genitourinary: No Gastrointestinal: No Musculoskeletal: Yes Chronic Back Pain Endocrine: No HEENT: No Cancer: No Psychosocial: No Integumentary: No Blood Disorders: No Family Medical History No Pertinent Family Hx Physical Exam Vital Signs Vital Signs - First Documented 08/21/19 18:42 Temp 36.0 Pulse 68 Resp 22 B/P (MAP) 154/98 (116) Pulse Ox 100 O2 Delivery Room Air Capillary Refill : Height, Weight, BMI Height: '" Weight: lbs. oz. kg; 28.00 BMI Method: General Appearance: WD/WN, Mild Distress Neck: Full Range of Motion, Normal Inspection Respiratory: No Accessory Muscle Use, No Respiratory Distress Gastrointestinal: Normal Bowel Sounds, Non Tender, Soft; No Tenderness; Other (midline abdominal scar will heal. He states that he had his spleen removed in 2019 following trauma.) Extremity: Normal Capillary Refill, Normal Inspection Neurologic/Psychiatric: Alert, Oriented x3 Skin: Normal Color, Warm/Dry Progress/Results/Core Measures Results/Orders Lab Results Laboratory Tests Test 08/21/19 19:00 Range/Units White Blood Count 13.2 H 4.3-11.0 10^3/uL Red Blood Count 5.54 4.35-5.85 10^6/uL Hemoglobin 16.2 13.3-17.7 G/DL Hematocrit 48 40-54 % Mean Corpuscular Volume 87 80-99 FL Mean Corpuscular Hemoglobin 29 25-34 PG Mean Corpuscular Hemoglobin Concent 34 32-36 G/DL Red Cell Distribution Width 15.1 H 10.0-14.5 % Platelet Count 413 H 130-400 10^3/uL Mean Platelet Volume 10.4 7.4-10.4 FL Neutrophils (%) (Auto) 59 42-75 % Lymphocytes (%) (Auto) 29 12-44 % Monocytes (%) (Auto) 11 0-12 % Eosinophils (%) (Auto) 1 0-10 % Basophils (%) (Auto) 0 0-10 % Neutrophils # (Auto) 7.7 1.8-7.8 X 10^3 Lymphocytes # (Auto) 3.8 1.0-4.0 X 10^3 Monocytes # (Auto) 1.5 H 0.0-1.0 X 10^3 Eosinophils # (Auto) 0.2 0.0-0.3 10^3/uL Basophils # (Auto) 0.0 0.0-0.1 10^3/uL Sodium Level 138 135-145 MMOL/L Potassium Level 4.2 3.6-5.0 MMOL/L Chloride Level 103 98-107 MMOL/L Carbon Dioxide Level 22 21-32 MMOL/L Anion Gap 13 5-14 MMOL/L Blood Urea Nitrogen 16 7-18 MG/DL Creatinine 1.06 0.60-1.30 MG/DL Estimat Glomerular Filtration Rate > 60 BUN/Creatinine Ratio 15 Glucose Level 103 70-105 MG/DL Calcium Level 9.6 8.5-10.1 MG/DL Corrected Calcium 9.2 8.5-10.1 MG/DL Total Bilirubin 0.4 0.1-1.0 MG/DL Aspartate Amino Transf (AST/SGOT) 22 5-34 U/L Alanine Aminotransferase (ALT/SGPT) 19 0-55 U/L Alkaline Phosphatase 147 H 40-136 U/L Total Protein 8.5 H 6.4-8.2 GM/DL Albumin 4.5 3.2-4.5 GM/DL My Orders Orders - GUERITA CAMPOS APRN Cbc With Automated Diff (08/21/19 18:40) Comprehensive Metabolic Panel (08/21/19 18:40) Ua Culture If Indicated (08/21/19 18:40) Drug Screen Stat (Urine) (08/21/19 18:40) Ed Iv/Invasive Line Start (08/21/19 18:40) Ct Abd/Pelvis Wo(Kidney Stone) (08/21/19 18:40) Abdomen/Kub 1view (08/21/19 18:40) Ketorolac Injection (Toradol Injection) (08/21/19 18:45) Ns Iv 1000 Ml (Sodium Chloride 0.9%) (08/21/19 18:45) Ondansetron Injection (Zofran Injectio (08/21/19 18:45) Medications Given in ED Current Medications Medications Dose Ordered Sig/Tiffanie Route Start Time Stop Time Status Last Admin Dose Admin Ketorolac Tromethamine 30 mg ONCE ONCE IVP 08/21/19 18:45 08/21/19 18:46 DC 08/21/19 19:07 30 MG Ondansetron HCl 8 mg ONCE ONCE IVP 08/21/19 18:45 08/21/19 18:46 DC 08/21/19 19:08 8 MG Vital Signs/I&O 08/21/19 08/21/19 18:42 19:07 Temp 36.0 36.0 Pulse 68 Resp 22 B/P (MAP) 154/98 (116) Pulse Ox 100 O2 Delivery Room Air Diagnostic Imaging Diagonstic Imaging: CT Comments NAME: JENNA WATKINS [facility] REC#: [id number] PT STATUS: REG ER : 1965 PHYSICIAN: GUERITA CAMPOS APRN ADMIT DATE: 08/21/19/ER Draft Date of Exam:08/21/19 CT ABD/PELVIS WO(KIDNEY STONE) PROCEDURE: CT urinary tract, rule out kidney stone. TECHNIQUE: Multiple contiguous axial images were obtained through the abdomen and pelvis without the use of intravenous contrast. Auto Exposure Controls were utilized during the CT exam to meet ALARA standards for radiation dose reduction. INDICATION: Right-sided back pain Comparison is made with a prior study from 01/22/2019. The liver, gallbladder and bile ducts are normal. The spleen is surgically absent. The pancreas and adrenals are normal. There is a punctate nonobstructing calculus in the lower pole of the right kidney. There is minimal fullness of the upper collecting system on the right. The right ureter is mildly prominent compared to the left. I believe there is a punctate calculus at the right ureterovesical junction. The left ureter is normal. There is no intrinsic abnormality of the bladder. No acute bowel abnormality is seen. The appendix is normal. There is no ascites. There is no adenopathy. There is no bony abnormality. IMPRESSION: There is a punctate calculus at the right ureterovesical junction. There is minimal pelvocaliectasis present on the right. There is also a nonobstructing punctate calcification in the lower pole of the right kidney. Dictated on workstation # [id number] Dict: 08/21/191928 Trans: 08/21/191934 [facility] [id number] Interpreted by: ENOC PINEDA MD Electronically signed by: Departure Communication (Admissions) 1938-feeling much better after 30 mg of Toradol Impression Primary Impression: Right ureteral stone Additional Impression: Methamphetamine abuse Disposition: 01 HOME, SELF-CARE Condition: Improved Departure-Patient Inst. Decision time for Depature: 19:40 Referrals: NO,LOCAL PHYSICIAN (PCP/Family) Primary Care Physician Patient Instructions: Kidney Stones in Adults Add. Discharge Instructions: 1. Take ibuprofen 4 tablets every 8 hours for pain control in addition to the prescribed pain medication. Return to ER for any concerns. All discharge instructions reviewed with patient and/or family. Voiced understanding. GUERITA CAMPOS PARKING ENFORCEMENT SPECIALIST Aug 21, 2019 18:44
[2019-08-21] MEDS ORDERED: KETOROLAC 30 MG/ML VIAL IVP ONE (18:45)
[2019-08-21] MEDS ORDERED: NS IV 1000 ML 1,000 ML IV SCH (18:45)
[2019-08-21] MEDS ORDERED: ONDANSETRON 4 MG/2 ML (SDV) Z0FRAN IVP ONE (18:45)
[2019-08-21 19:16] LABS: BASOPHILS % (AUTO) 0 % (0-10); EOSINOPHILS # (AUTO) 0.2 10^3/uL (0.0-0.3); EOSINOPHILS % (AUTO) 1 % (0-10); HEMATOCRIT 48 % (40-54); HEMOGLOBIN 16.2 G/DL (13.3-17.7); LYMPHOCYTES # (AUTO) 3.8 X 10^3 (1.0-4.0); LYMPHOCYTES % (AUTO) 29 % (12-44); MEAN CORPUSCULAR HEMOGLOBIN 29 PG (25-34); MEAN CORPUSCULAR HGB CONC 34 G/DL (32-36); MEAN CORPUSCULAR VOLUME 87 FL (80-99); MEAN PLATELET VOLUME 10.4 FL (7.4-10.4); MONOCYTES # (AUTO) 1.5 X 10^3 (0.0-1.0); MONOCYTES % (AUTO) 11 % (0-12); NEUTROPHILS # (AUTO) 7.7 X 10^3 (1.8-7.8); NEUTROPHILS % (AUTO) 59 % (42-75); PLATELET COUNT 413 10^3/uL (130-400); RED CELL DISTRIBUTION WIDTH 15.1 % (10.0-14.5); WHITE BLOOD COUNT 13.2 10^3/uL (4.3-11.0)
[2019-08-21 19:29] LABS: ALBUMIN 4.5 GM/DL (3.2-4.5)
[2019-08-21 19:30] LABS: CHLORIDE 103 MMOL/L (98-107); POTASSIUM 4.2 MMOL/L (3.6-5.0); SODIUM 138 MMOL/L (135-145)
[2019-08-21 19:31] LABS: CALCIUM 9.6 MG/DL (8.5-10.1)
[2019-08-21 19:32] LABS: GLUCOSE 103 MG/DL (70-105); TOTAL PROTEIN 8.5 GM/DL (6.4-8.2)
[2019-08-21 19:33] LABS: CARBON DIOXIDE 22 MMOL/L (21-32)
[2019-08-21 19:34] LABS: BILIRUBIN,TOTAL 0.4 MG/DL (0.1-1.0)
--- NOTE | 2019-08-21 19:34 | NUR ---
Received report from FRAN Brody at this time.
[2019-08-21 19:35] LABS: ALKALINE PHOSPHATASE 147 U/L (40-136)
[2019-08-21 19:36] LABS: CREATININE SERUM 1.06 MG/DL (0.60-1.30); GFR ESTIMATED > 60
--- NOTE | 2019-08-21 19:36 | Diagnostic Imaging Report ---
PROCEDURE: CT urinary tract, rule out kidney stone. TECHNIQUE: Multiple contiguous axial images were obtained through the abdomen and pelvis without the use of intravenous contrast. Auto Exposure Controls were utilized during the CT exam to meet ALARA standards for radiation dose reduction. INDICATION: Right-sided back pain Comparison is made with a prior study from 01/22/2019. The liver, gallbladder and bile ducts are normal. The spleen is surgically absent. The pancreas and adrenals are normal. There is a punctate nonobstructing calculus in the lower pole of the right kidney. There is minimal fullness of the upper collecting system on the right. The right ureter is mildly prominent compared to the left. I believe there is a punctate calculus at the right ureterovesical junction. The left ureter is normal. There is no intrinsic abnormality of the bladder. No acute bowel abnormality is seen. The appendix is normal. There is no ascites. There is no adenopathy. There is no bony abnormality. IMPRESSION: There is a punctate calculus at the right ureterovesical junction. There is minimal pelvocaliectasis present on the right. There is also a nonobstructing punctate calcification in the lower pole of the right kidney. Dictated by: Dictated on workstation # [id number]
[2019-08-21 19:37] LABS: BUN/CREATININE RATIO 15
[2019-08-21 19:38] LABS: ALANINE AMINOTRANSFERASE 19 U/L (0-55)
[2019-08-21] MEDS ORDERED: RX-HYDROCODONE/APAP 5/325 MG #4 TAB PK PO PRN (19:45)
[2019-08-21 19:53] LABS: BILIRUBIN,URINE NEGATIVE (NEGATIVE); COLOR,URINE YELLOW; GLUCOSE, URINE (UA) NEGATIVE (NEGATIVE); KETONES,URINE NEGATIVE (NEGATIVE); LEUKOCYTE ESTERASE ,URINE NEGATIVE (NEGATIVE); NITRITE,URINE NEGATIVE (NEGATIVE); PROTEIN,URINE NEGATIVE (NEGATIVE)
[2019-08-21 19:59] LABS: BACTERIA,URINE TRACE /HPF; CLARITY,URINE SL CLOUDY; SQUAMOUS EPITHELIAL CELL,UR RARE /HPF; WBC,URINE RARE /HPF
[2019-08-21 20:00] LABS: AMORPHOUS SEDIMENT,UR MOD AMOR PHOSPHATE /LPF
[2019-08-21 20:03] LABS: BENZODIAZEPINES SCREEN URINE NEGATIVE (NEGATIVE)
[2019-08-21 20:04] LABS: AMPHETAMINE SCREEN, URINE POSITIVE (NEGATIVE); BARBITURATE SCREEN URINE NEGATIVE (NEGATIVE); CANNABINOID SCREEN, URINE NEGATIVE (NEGATIVE); COCAINE SCREEN URINE NEGATIVE (NEGATIVE); METHADONE STAT NEGATIVE (NEGATIVE); METHAMPHETAMINE SCREEN URINE S NEGATIVE (NEGATIVE); OPIATE SCREEN URINE NEGATIVE (NEGATIVE); OXYCODONE STAT NEGATIVE (NEGATIVE); PROPOXYPHENE STAT NEGATIVE (NEGATIVE); TRICYCLIC ANTIDEPRESSANTS SCRE NEGATIVE (NEGATIVE)
[2019-08-21 20:09] VITALS: BP 146/85
--- NOTE | 2019-08-21 20:09 | Diagnostic Imaging Report ---
INDICATION: Right-sided back pain. EXAMINATION: Single view of the mid and lower abdomen were obtained. FINDINGS: Diaphragm is not visualized on this study. The bowel gas pattern is within normal limits. No mass or calculus is seen. There is no bony abnormality. IMPRESSION: No abnormality is seen. Dictated by: Dictated on workstation # [id number]
--- OUTSIDE RECORDS SUMMARY | 2019-08-21 20:42 | XMS REPORT | Continuity of Care Document ---
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 amphetamines detection by screening method P OSITIVE NEGATIVE Urine methamphetamine detection by screening method NEGATIVE NEGATIVE Urine cannabinoids detection by screening method N EGATIVE NEGATIVE Urine opiates detection by screening method NEGATI VE NEGATIVE Urine barbiturates detection NEGATIVE N EGATIVE Screening urine tricyclic antidepressants detection NEGATIVE NEGATIVE Urine methadone detection by screening method NEGA TIVE NEGATIVE Urine oxycodone detection NEGATIVE NEGA TIVE Urine propoxyphene detection NEGATIVE N EGATIVE Encounters ACCT No. Visit Date/Time Discharge Status Pt. Type Provider Facility Loc./Unit Complaint [id number] 01/22/2019 10:06:00 019 15:20:00 DIS Inpatient BRONWYN BRADY DO Via [facility] 4TH SPLENIC LAC [id number] 08/21/2019 18:37:[address] Emergency GUERITA CAMPOS APRN Via [facility] ER BACK PAIN
== END 2019-08-21 20:09 | disposition home or self-care (01) ==
LOC: EDUNIT# 18:36 → ER 18:37
DX: N20.1 Calculus of ureter (principal); F15.10 Other stimulant abuse, uncomplicated; Z77.22 Contact with and (suspected) exposure to environmental tobacco smoke (acute) (chronic)
CPT/HCPCS: 36415; 74018; 74176; 80053; 80306; 81000; 85025

== ENCOUNTER 2019-09-16 14:31 | Emergency (ER) | payer OTHER ==
[~2019-09-16] VITALS: Ht 165 cm; Wt 68.0 kg
[2019-09-16] MEDS ORDERED: LACTATED RINGERS 1,000 ML IV SCH (14:45)
[2019-09-16 14:48] LABS: CLARITY,URINE CLEAR; COLOR,URINE YELLOW; GLUCOSE, URINE (UA) NEGATIVE (NEGATIVE); KETONES,URINE NEGATIVE (NEGATIVE); LEUKOCYTE ESTERASE ,URINE NEGATIVE (NEGATIVE); NITRITE,URINE NEGATIVE (NEGATIVE); PROTEIN,URINE NEGATIVE (NEGATIVE)
[2019-09-16 14:49] LABS: BASOPHILS # (AUTO) 0.1 10^3/uL (0.0-0.1); BASOPHILS % (AUTO) 1 % (0-10); EOSINOPHILS # (AUTO) 0.1 10^3/uL (0.0-0.3); EOSINOPHILS % (AUTO) 1 % (0-10); HEMATOCRIT 43 % (40-54); HEMOGLOBIN 14.9 G/DL (13.3-17.7); LYMPHOCYTES # (AUTO) 3.1 X 10^3 (1.0-4.0); LYMPHOCYTES % (AUTO) 36 % (12-44); MEAN CORPUSCULAR HEMOGLOBIN 29 PG (25-34); MEAN CORPUSCULAR HGB CONC 35 G/DL (32-36); MEAN CORPUSCULAR VOLUME 83 FL (80-99); MEAN PLATELET VOLUME 11.2 FL (7.4-10.4); MONOCYTES # (AUTO) 1.7 X 10^3 (0.0-1.0); MONOCYTES % (AUTO) 20 % (0-12); NEUTROPHILS # (AUTO) 3.6 X 10^3 (1.8-7.8); NEUTROPHILS % (AUTO) 42 % (42-75); PLATELET COUNT 542 10^3/uL (130-400); WHITE BLOOD COUNT 8.6 10^3/uL (4.3-11.0)
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
[2019-09-16 14:58] LABS: BACTERIA,URINE NEGATIVE /HPF; BILIRUBIN,URINE 1+ (NEGATIVE); SQUAMOUS EPITHELIAL CELL,UR RARE /HPF
[2019-09-16 14:59] LABS: ALBUMIN 3.4 GM/DL (3.2-4.5); CHLORIDE 104 MMOL/L (98-107); POTASSIUM 3.8 MMOL/L (3.6-5.0); SODIUM 138 MMOL/L (135-145)
[2019-09-16 15:00] LABS: PROTHROMBIN TIME PATIENT 13.4 SEC (12.2-14.7)
[2019-09-16 15:01] LABS: CALCIUM 8.8 MG/DL (8.5-10.1)
[2019-09-16 15:02] LABS: GLUCOSE 65 MG/DL (70-105); TOTAL PROTEIN 7.9 GM/DL (6.4-8.2)
[2019-09-16 15:03] LABS: CARBON DIOXIDE 25 MMOL/L (21-32)
[2019-09-16 15:04] LABS: BILIRUBIN,TOTAL 7.3 MG/DL (0.1-1.0)
[2019-09-16 15:05] LABS: ALKALINE PHOSPHATASE 455 U/L (40-136); CREATININE SERUM 0.78 MG/DL (0.60-1.30); GFR ESTIMATED > 60
[2019-09-16 15:06] LABS: BUN/CREATININE RATIO 17
[2019-09-16 15:08] LABS: ALANINE AMINOTRANSFERASE 636 U/L (0-55)
[2019-09-16 15:12] LABS: ATYPICAL LYMPHOCYTES 2 %; LYMPHOCYTES % (MANUAL) 33 %; METAMYELOCYTES % 1 %; MONOCYTES % (MANUAL) 22 %; NEUTROPHILS % (MANUAL) 42 %
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
[2019-09-16] MEDS ORDERED: LEVOFLOXACIN 750 MG TAB (LEVAQUIN) PO ONE (16:30)
[2019-09-16] MEDS ORDERED: LEVO750T9 PO (16:43)
--- NOTE | 2019-09-16 16:49 | Diagnostic Imaging Report ---
PROCEDURE: US Hepatic (Liver). TECHNIQUE: Multiple Real-time grayscale images were obtained over the right upper quadrant in various projections. INDICATION: Liver disease. COMPARISON: CT from 08/21/2019. FINDINGS: The imaged portions of the pancreas are unremarkable although the majority of the body and tail is not well seen due to bowel gas. The imaged portions of the aorta and IVC appear normal. The liver has a normal-appearing contour. No masses are seen. The liver is mildly large measuring 22.4 cm in length. No significant biliary dilatation is seen. The common bile duct is normal in size measuring 5 mm in width. The main portal vein is hepatopetal. The gallbladder wall appears prominent measuring 4 mm; however, this is likely due to contraction. There do appear to be internal echoes, likely small stones or sludge. There is a small amount of pericholecystic fluid. The sonographic Sykes sign is negative. No free fluid is seen elsewhere in the abdomen. The right kidney measures 12 cm in length. No hydronephrosis is seen. IMPRESSION: 1. Sludge or stones in the contracted gallbladder with a small amount of pericholecystic fluid. Sykes's sign is negative. 2. Hepatomegaly. Dictated by: Dictated on workstation # [id number]
[2019-09-16] MEDS: LACTATED RINGERS 1,000 ML IV SCH ×2 (17:15→18:10)
[2019-09-16 18:07] VITALS: BP 136/80
[2019-09-17 00:43] LABS: HEPATITIS C ANTIBODY C Non-Reactive (Non-Reactive)
== END 2019-09-16 18:10 | disposition home or self-care (01) ==
LOC: EDUNIT# 14:31 → ER 14:32
DX: B15.9 Hepatitis A without hepatic coma (principal); M54.9 Dorsalgia, unspecified; Z90.81 Acquired absence of spleen
CPT/HCPCS: 36415; 76705; 80053; 80074; 81000; 85007; 85027; 85610; 87340; 87522

== ENCOUNTER 2020-01-03 15:53 | Emergency (ER) | payer OTHER ==
[~2020-01-03] VITALS: Ht 165.1 cm; Wt 77.1 kg
[~2020-01-03 15:53] MED LIST changes: +LEVO750T9 PO
[2020-01-03] MEDS ORDERED: LACTATED RINGERS 1,000 ML IV ONE (16:36)
--- NOTE | 2020-01-03 16:42 | ED EENT ---
History of Present Illness General Chief Complaint: General Problems/Pain Stated Complaint: R SIDE OF NECK SWELLING Source: patient Exam Limitations: no limitations History of Present Illness Date Seen by Provider: Jan 03, 2020 Time Seen by Provider: 16:24 Initial Comments Patient presents ER by private conveyance with chief complaint that since yesterday he started having some swelling and pain in the right side of his posterior jaw and face and neck. He has no pain in his teeth. No recent dental surgeries extractions etc. He does not follow with a doctor routinely. Him he said he's having chills and a sore throat so the little bit difficult to swallow but he can breathe okay although he feels some pressure on the right side of his neck. He has not had any fever but last week he had some chills. No cough, shortness of air, nausea vomiting etc. He does not take any medicines or follow with a doctor. He does smoke about half pack cigarettes per day and last use of methamphetamines was this morning. He injects does not smoke. He does not routinely drink. Allergies and Home Medications Allergies Coded Allergies: No Known Drug Allergies (Unverified , 01/22/19) Home Medications Cefdinir 300 Mg Capsule, 300 MG PO BID Prescribed by: ARRON FUENTES on 01/26/19 1002 Hydrocodone Bit/Acetaminophen 1 Tab Tab, 1 TAB PO Q4H PRN for PAIN-MODERATE (5-7 ) Prescribed by: BRONWYN BRADY on 01/26/19 1307 Levofloxacin 750 Mg Tablet, 750 MG PO DAILY Prescribed by: GUERITA CAMPOS on 09/16/19 1643 Patient Home Medication List Home Medication List Reviewed: Yes Review of Systems Review of Systems Constitutional: No chills, No fever, No malaise Eyes: Denies Blindness, Denies Blurred Vision Ears: Denies Dizziness, Denies Pain Nose: denies clots, denies pain Mouth: denies pain, denies swelling Throat: see HPI, pain; denies swelling Respiratory: No cough, No short of breath Cardiovascular: No Hx of Intervention, No palpitations Gastrointestinal: No abdominal pain, No constipation, No diarrhea Musculoskeletal: No back pain, No joint pain All Other Systems Reviewed Negative Unless Noted: Yes Past [id number]-Emcnbn Hx Patient Social History Alcohol Use: Denies Use Recreational Drug Use: Yes Drug of Choice: IV METH/OPIATES/THC Smoking Status: Current Everyday Smoker Type Used: Cigarettes 2nd Hand Smoke Exposure: Yes Recent Foreign Travel: No Contact w/Someone Who Travel: No Recent Hopitalizations: Yes (01/2019 SPLEENECTOMY) Immunizations Up To Date Tetanus Booster (TDap): Unknown Seasonal Allergies Seasonal Allergies: No Past Medical History Surgeries: Yes (SPLEENECTOMY, HERNIA) Respiratory: No Cardiac: No Neurological: No Genitourinary: No Gastrointestinal: No Musculoskeletal: Yes Chronic Back Pain Endocrine: No HEENT: No Cancer: No Psychosocial: No Integumentary: No Blood Disorders: No Family Medical History No Pertinent Family Hx Physical Exam Vital Signs Vital Signs - First Documented 01/03/20 16:17 Temp 36.8 Pulse 112 Resp 18 B/P (MAP) 137/90 (106) Pulse Ox 96 O2 Delivery Room Air Height, Weight, BMI Height: '" Weight: lbs. oz. kg; 24.00 BMI Method: General Appearance: WD/WN, moderate distress Eyes: bilateral eye normal inspection, bilateral eye PERRL, bilateral eye EOMI Ears: bilateral ear auricle normal, bilateral ear canal normal, bilateral ear TM normal Nose: normal inspection; No active bleeding Progress/Results/Core Measures Results/Orders Lab Results Laboratory Tests Test 01/03/20 16:35 Range/Units White Blood Count 15.7 H 4.3-11.0 10^3/uL Red Blood Count 4.92 4.30-5.52 10^6/uL Hemoglobin 14.8 13.3-17.7 g/dL Hematocrit 45 40-54 % Mean Corpuscular Volume 92 80-99 fL Mean Corpuscular Hemoglobin 30 25-34 pg Mean Corpuscular Hemoglobin Concent 33 32-36 g/dL Red Cell Distribution Width 13.2 10.0-14.5 % Platelet Count 457 H 130-400 10^3/uL Mean Platelet Volume 10.2 9.0-12.2 fL Immature Granulocyte % (Auto) 1 % Neutrophils (%) (Auto) 76 H 42-75 % Lymphocytes (%) (Auto) 15 12-44 % Monocytes (%) (Auto) 8 0-12 % Eosinophils (%) (Auto) 1 0-10 % Basophils (%) (Auto) 0 0-10 % Neutrophils # (Auto) 11.9 H 1.8-7.8 10^3/uL Lymphocytes # (Auto) 2.4 1.0-4.0 10^3/uL Monocytes # (Auto) 1.2 H 0.0-1.0 10^3/uL Eosinophils # (Auto) 0.1 0.0-0.3 10^3/uL Basophils # (Auto) 0.1 0.0-0.1 10^3/uL Immature Granulocyte # (Auto) 0.1 0.0-0.1 10^3/uL Neutrophils % (Manual) 74 % Lymphocytes % (Manual) 11 % Monocytes % (Manual) 8 % Band Neutrophils 7 % Blood Morphology Comment NORMAL Sodium Level 133 L 135-145 MMOL/L Potassium Level 4.2 3.6-5.0 MMOL/L Chloride Level 99 98-107 MMOL/L Carbon Dioxide Level 26 21-32 MMOL/L Anion Gap 8 5-14 MMOL/L Blood Urea Nitrogen 15 7-18 MG/DL Creatinine 0.85 0.60-1.30 MG/DL Estimat Glomerular Filtration Rate > 60 BUN/Creatinine Ratio 18 Glucose Level 133 H 70-105 MG/DL Calcium Level 9.1 8.5-10.1 MG/DL Corrected Calcium 9.3 8.5-10.1 MG/DL Total Bilirubin 0.4 0.1-1.0 MG/DL Aspartate Amino Transf (AST/SGOT) 45 H 5-34 U/L Alanine Aminotransferase (ALT/SGPT) 87 H 0-55 U/L Alkaline Phosphatase 106 40-136 U/L Total Creatine Kinase 183 30-200 U/L C-Reactive Protein High Sensitivity 4.41 H 0.00-0.50 MG/DL Total Protein 10.0 H 6.4-8.2 GM/DL Albumin 3.7 3.2-4.5 GM/DL My Orders Orders - BARBARA REAGAN Blood Culture (01/03/20 16:36) Cbc With Automated Diff (01/03/20 16:36) Comprehensive Metabolic Panel (01/03/20 16:36) Hs C Reactive Protein (01/03/20 16:36) Creatine Kinase (01/03/20 16:36) Ct Neck (Soft Tissue) W (01/03/20 16:36) Ed Iv/Invasive Line Start (01/03/20 16:36) Lactated Ringers (Lr 1000 Ml Iv Solution (01/03/20 16:36) Iohexol Injection (Omnipaque 350 Mg/Ml 1 (01/03/20 16:45) Received Contrast (Hold Metformin- Contr (01/03/20 16:45) Ns (Ivpb) (Sodium Chloride 0.9% Ivpb Bag (01/03/20 16:45) Fentanyl Injection (Sublimaze Injection (01/03/20 17:15) Manual Differential (01/03/20 16:35) Vancomycin Injection (Vancomycin Injecti (01/03/20 18:15) Piperacillin Sodium/Tazobactam (Zosyn Vi (01/03/20 18:15) Lactated Ringers (Lr 1000 Ml Iv Solution (01/03/20 18:15) Protime With Inr (01/03/20 18:08) Partial Thromboplastin Time (01/03/20 18:08) Chest 1 View, Ap/Pa Only (01/03/20 18:08) Ed Iv/Invasive Line Start (01/03/20 18:08) Ed Iv/Invasive Line Start (01/03/20 18:08) Vital Signs Adult Sepsis Patie Q15M (01/03/20 18:08) Remove Rings In Anticipation O (01/03/20 18:08) Lactic Acid Analyzer (01/03/20 18:08) Vancomycin Injection (Vancomycin Injecti (01/03/20 18:30) Ketorolac Injection (Toradol Injection) (01/03/20 18:45) Medications Given in ED Current Medications Medications Dose Ordered Sig/Tiffanie Route Start Time Stop Time Status Last Admin Dose Admin Fentanyl Citrate 50 mcg ONCE ONCE IVP 01/03/20 17:15 01/03/20 17:16 DC 01/03/20 17:32 50 MCG Iohexol 75 ml ONCE ONCE IV 01/03/20 16:45 01/03/20 16:46 DC 01/03/20 17:21 75 ML Lactated Ringer's 1,000 ml @ 0 mls/hr Q0M ONCE IV 01/03/20 16:36 01/03/20 16:39 DC 01/03/20 17:00 0 MLS/HR Piperacillin Sod/ Tazobactam Sod 4.5 gm/Sodium Chloride 100 ml @ 200 mls/hr ONCE ONCE IV 01/03/20 18:15 01/03/20 18:44 01/03/20 18:26 200 MLS/HR Sodium Chloride 100 ml ONCE ONCE IV 01/03/20 16:45 01/03/20 16:46 DC 01/03/20 17:21 80 ML Vital Signs/I&O 01/03/20 16:17 Temp 36.8 Pulse 112 Resp 18 B/P (MAP) 137/90 (106) Pulse Ox 96 O2 Delivery Room Air Progress Progress Note : Time: 18:18 Progress Note Dental Abscess, Retropharyngeal abscess? CT. Fentanyl for pain. After a liter of fluids his heart rate is down in the 90s from 120. Really give him a second liter fluids and cover him with some broad-spectrum antibiotics. 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 Diagnostic Imaging Diagonstic Imaging: CT Plain Films/CT/US/NM/MRI: other (neck) Comments NAME: LEXA WATKINS [facility] REC#: [id number] PT STATUS: REG ER : 1965 PHYSICIAN: BARBARA REAGAN MD ADMIT DATE: 01/03/20/ER Draft Date of Exam:01/03/20 CT NECK (SOFT TISSUE) W PROCEDURE: CT neck soft tissue with contrast. TECHNIQUE: Multiple contiguous axial images were obtained through the neck after the administration of contrast. Auto Exposure Controls were utilized during the CT exam to meet ALARA standards for radiation dose reduction. INDICATION: Right neck mass. COMPARISON: CT cervical spine without contrast 01/22/2019. FINDINGS: Markedly enlarged right level 2 necrotic appearing lymph node measuring approximately 2.1 x 2.0 cm. A 2nd right level 2 cervical lymph node measures up to 1.3 cm in short axis dimension. There are also a few scattered level 3 lymph nodes measuring up to 1.0 cm in short axis dimension on the right which are asymmetric to the contralateral side. Small amount of fluid in the retropharyngeal space measuring up to 0.4 cm in thickness. No discrete mass or focus of enhancement is seen within the larynx or pharynx. No acute osseous finding. The thyroid and major salivary glands are unremarkable. The floor of the mouth, tongue base and epiglottis appear negative. The carotid and vertebral arteries appear grossly patent. Lung apices are clear. Visualized paranasal sinuses and mastoids are clear. IMPRESSION: Right level 2 and 3 cervical lymphadenopathy including a necrotic level 2 cervical lymph node. There is also a thin layer of fluid in the retropharyngeal space. Findings could be infectious/inflammatory. However, malignancy cannot be excluded. No suspicious enhancement or mass is identified in the larynx or pharynx. This could be better evaluated with direct visualization. Dictated on workstation # [id number] Dict: 01/03/20 1727 Trans: 01/03/20 [address] [facility] [id number] Interpreted by: JAMAR CAPELLAN MD Electronically signed by: Reviewed: Reviewed by Me Diagonstic Imaging: Xray Plain Films/CT/US/NM/MRI: chest Comments No acute cardio pulmonary processes on one view chest x-ray. Reviewed: Reviewed by Me Departure Impression Primary Impression: Retropharyngeal and parapharyngeal abscess Disposition: XFER SHT-TRM HOSP Condition: Stable Transfer Transfer Reason: Exceeds level of care (no ear nose and throat surgery available) Time Spoke to Accepting Phy: 18:19 Transfer Progress Notes [facility] is at capacity in [place]. [facility] is at capacity in [place]. [facility] in [place] has ENT and available beds. We discussed the case and the triage nurse will have ENT call us back. [facility] doctor Javier accepts the patient. They have beds and ENT available. The ENT team from [place], [place] called back and we informed him that we did not need a bed at this time. Transfer Facility: [facility] Method of Transfer: EMS Departure-Patient Inst. Referrals: NO,LOCAL PHYSICIAN (PCP/Family) Primary Care Physician BARBARA REAGAN Jan 03, 2020 16:42
[2020-01-03] MEDS ORDERED: NS 100 ML (IVPB) BAG IV ONE (16:45)
[2020-01-03] MEDS ORDERED: IOHEXOL 350 MG/ML 100 ML (OMNIPAQUE 350) VIAL IV ONE (16:45)
[2020-01-03] MEDS ORDERED: HOLD METFORMIN - RECEIVED CONTRAST 20 ML VIAL IV SCH (16:45)
[2020-01-03 17:03] LABS: BASOPHILS # (AUTO) 0.1 10^3/uL (0.0-0.1); BASOPHILS % (AUTO) 0 % (0-10); EOSINOPHILS # (AUTO) 0.1 10^3/uL (0.0-0.3); EOSINOPHILS % (AUTO) 1 % (0-10); HEMATOCRIT 45 % (40-54); HEMOGLOBIN 14.8 g/dL (13.3-17.7); LYMPHOCYTES # (AUTO) 2.4 10^3/uL (1.0-4.0); LYMPHOCYTES % (AUTO) 15 % (12-44); MEAN CORPUSCULAR HEMOGLOBIN 30 pg (25-34); MEAN CORPUSCULAR HGB CONC 33 g/dL (32-36); MEAN CORPUSCULAR VOLUME 92 fL (80-99); MEAN PLATELET VOLUME 10.2 fL (9.0-12.2); MONOCYTES # (AUTO) 1.2 10^3/uL (0.0-1.0); MONOCYTES % (AUTO) 8 % (0-12); NEUTROPHILS # (AUTO) 11.9 10^3/uL (1.8-7.8); NEUTROPHILS % (AUTO) 76 % (42-75); PLATELET COUNT 457 10^3/uL (130-400); WHITE BLOOD COUNT 15.7 10^3/uL (4.3-11.0)
[2020-01-03 17:14] LABS: ALBUMIN 3.7 GM/DL (3.2-4.5)
[2020-01-03 17:15] LABS: CHLORIDE 99 MMOL/L (98-107); POTASSIUM 4.2 MMOL/L (3.6-5.0); SODIUM 133 MMOL/L (135-145)
[2020-01-03] MEDS ORDERED: fentaNYL INJECTION 100 MCG/2 ML AMP IVP ONE (17:15)
[2020-01-03 17:16] LABS: CALCIUM 9.1 MG/DL (8.5-10.1)
[2020-01-03 17:17] LABS: GLUCOSE 133 MG/DL (70-105)
[2020-01-03 17:18] LABS: CARBON DIOXIDE 26 MMOL/L (21-32)
[2020-01-03 17:19] LABS: BILIRUBIN,TOTAL 0.4 MG/DL (0.1-1.0)
[2020-01-03 17:20] LABS: ALKALINE PHOSPHATASE 106 U/L (40-136)
[2020-01-03 17:21] LABS: CREATININE SERUM 0.85 MG/DL (0.60-1.30); GFR ESTIMATED > 60
[2020-01-03 17:22] LABS: BUN/CREATININE RATIO 18
[2020-01-03 17:24] LABS: ALANINE AMINOTRANSFERASE 87 U/L (0-55); CREATINE KINASE 183 U/L (30-200)
--- NOTE | 2020-01-03 17:40 | Diagnostic Imaging Report ---
PROCEDURE: CT neck soft tissue with contrast. TECHNIQUE: Multiple contiguous axial images were obtained through the neck after the administration of contrast. Auto Exposure Controls were utilized during the CT exam to meet ALARA standards for radiation dose reduction. INDICATION: Right neck mass. COMPARISON: CT cervical spine without contrast 01/22/2019. FINDINGS: Markedly enlarged right level 2 necrotic appearing lymph node measuring approximately 2.1 x 2.0 cm. A 2nd right level 2 cervical lymph node measures up to 1.3 cm in short axis dimension. There are also a few scattered level 3 lymph nodes measuring up to 1.0 cm in short axis dimension on the right which are asymmetric to the contralateral side. Small amount of fluid in the retropharyngeal space measuring up to 0.4 cm in thickness. No discrete mass or focus of enhancement is seen within the larynx or pharynx. No acute osseous finding. The thyroid and major salivary glands are unremarkable. The floor of the mouth, tongue base and epiglottis appear negative. The carotid and vertebral arteries appear grossly patent. Lung apices are clear. Visualized paranasal sinuses and mastoids are clear. IMPRESSION: Right level 2 and 3 cervical lymphadenopathy including a necrotic level 2 cervical lymph node. There is also a thin layer of fluid in the retropharyngeal space. Findings could be infectious/inflammatory. However, malignancy cannot be excluded. No suspicious enhancement or mass is identified in the larynx or pharynx. This could be better evaluated with direct visualization. Dictated by: Dictated on workstation # [id number]
[2020-01-03 17:57] LABS: BAND NEUTROPHILS 7 %; LYMPHOCYTES % (MANUAL) 11 %; MONOCYTES % (MANUAL) 8 %; NEUTROPHILS % (MANUAL) 74 %; RBC MORPH NORMAL
[2020-01-03] MEDS ORDERED: VANCOMYCIN INJECTION 750 MG in NS (IVPB) 250 ML IV SCH (18:15)
[2020-01-03] MEDS ORDERED: PIPERACILLIN SODIUM/TAZOBACTAM 4.5 GM in NS (IVPB) 100 ML IV ONE (18:15)
[2020-01-03] MEDS ORDERED: LACTATED RINGERS 1,000 ML IV SCH (18:15)
[2020-01-03] MEDS ORDERED: VANCOMYCIN 1500 MG/NS 500 ML IVPB IV NR ×2 (18:30)
--- NOTE | 2020-01-03 18:43 | Diagnostic Imaging Report ---
EXAM: Chest 1 view, AP/PA only. INDICATION: Numbness and swelling in right neck. COMPARISON: Chest radiograph 01/26/2019. FINDINGS: Normal heart size and central pulmonary vascularity. No focal pulmonary opacity, pleural effusion or pneumothorax. No acute osseous finding. IMPRESSION: No acute cardiopulmonary finding. Dictated by: Dictated on workstation # [id number]
[2020-01-03 18:45] LABS: PROTHROMBIN TIME PATIENT 13.5 SEC (12.2-14.7)
[2020-01-03] MEDS ORDERED: KETOROLAC 30 MG/ML VIAL IVP ONE (18:45)
--- NOTE | 2020-01-03 20:05 | NUR ---
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 2004 contacted [facility] dispatch
--- NOTE | 2020-01-03 20:35 | NUR ---
Pt report given to FRAN Bolaños ([facility]).
[2020-01-03 22:00] VITALS: BP 129/88
== END 2020-01-03 22:06 | disposition short-term general hospital (02) ==
LOC: EDUNIT# 15:53 → ER 15:54
DX: J39.0 Retropharyngeal and parapharyngeal abscess (principal); F17.210 Nicotine dependence, cigarettes, uncomplicated; G89.29 Other chronic pain; M54.9 Dorsalgia, unspecified; Z79.891 Long term (current) use of opiate analgesic
CPT/HCPCS: 36415; 70491; 71045; 80053; 82550; 83605; 85007; 85027; 85610; 85730; 86141; 87040

== ENCOUNTER 2021-10-24 23:12 | Emergency (ER) | payer OTHER ==
[2021-10-24 23:28] LABS: BASOPHILS # (AUTO) 0.1 10^3/uL (0.0-0.1); BASOPHILS % (AUTO) 0 % (0-10); EOSINOPHILS # (AUTO) 0.1 10^3/uL (0.0-0.3); EOSINOPHILS % (AUTO) 1 % (0-10); HEMATOCRIT 46 % (40-54); HEMOGLOBIN 15.1 g/dL (13.3-17.7); LYMPHOCYTES # (AUTO) 2.9 10^3/uL (1.0-4.0); LYMPHOCYTES % (AUTO) 26 % (12-44); MEAN CORPUSCULAR HEMOGLOBIN 29 pg (25-34); MEAN CORPUSCULAR HGB CONC 33 g/dL (32-36); MEAN CORPUSCULAR VOLUME 89 fL (80-99); MEAN PLATELET VOLUME 9.9 fL (9.0-12.2); MONOCYTES % (AUTO) 9 % (0-12); NEUTROPHILS # (AUTO) 7.1 10^3/uL (1.8-7.8); NEUTROPHILS % (AUTO) 64 % (42-75); PLATELET COUNT 469 10^3/uL (130-400); WHITE BLOOD COUNT 11.2 10^3/uL (4.3-11.0)
[2021-10-24] MEDS ORDERED: KETOROLAC 30 MG/ML VIAL IVP ONE (23:30)
[2021-10-24] MEDS ORDERED: NS IV 1000 ML 1,000 ML IV SCH (23:30)
[2021-10-24 23:37] LABS: POTASSIUM 4.1 MMOL/L (3.6-5.0)
[2021-10-24 23:38] LABS: CALCIUM 9.4 MG/DL (8.5-10.1)
--- NOTE | 2021-10-24 23:38 | ED Back Pain ---
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 DENIES URINARY FREQUENCY OR BURNING. STATES HE WAS POSITIVE FOR COVID LAST WEEK. 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 Source of Information: Patient Exam Limitations: No Limitations History of Present Illness Date Seen by Provider: Oct 24, 2021 Time Seen by Provider: 23:18 Initial Comments Patient to the ER by EMS from home with chief complaint that about an hour or 2 prior to arrival he started experiencing some 2 out of 10, progressively worsening left flank and costovertebral angle pain. He had COVID last week. He does not have a history of kidney stones. He denies any dysuria hematuria burning or discharge. 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 No recent trauma or falls. Allergies and Home Medications Allergies Coded Allergies: No Known Drug Allergies (Unverified , 01/22/19) Patient Home Medication List Home Medication List Reviewed: Yes Cefdinir (Cefdinir) 300 Mg Capsule, 300 MG PO BID Prescribed by: ARRON FUENTES on 01/26/19 1002 Cephalexin (Cephalexin) 500 Mg Tablet, 500 MG PO BID Prescribed by: BARBARA REAGAN on 10/25/21225 Hydrocodone Bit/Acetaminophen (Lortab 5 Mg Tablet) 1 Tab Tab, 1 TAB PO Q4H PRN for PAIN-MODERATE (5-7) Prescribed by: BRONWYN BRADY on 01/26/19 1307 Hydrocodone/Acetaminophen (Hydrocodone-Acetamin 5-325 mg) 5 Mg-325 Mg Tablet, 1 TAB PO Q6H PRN for PAIN-MODERATE (5-7) Prescribed by: BARBARA REAGAN on 10/25/21225 Levofloxacin (Levaquin) 750 Mg Tablet, 750 MG PO DAILY Prescribed by: GUERITA CAMPOS on 09/16/19 1643 Ondansetron (Ondansetron Odt) 4 Mg Tab.rapdis, 4 MG PO Q6H PRN for NAUSEA/VOMITING Prescribed by: BARBARA REAGAN on 10/25/21225 Tamsulosin HCl (Flomax) 0.4 Mg Cap, 0.4 MG PO DAILY Prescribed by: BARBARA REAGAN on 10/25/21225 Review of Systems Constitutional: No chills, No diaphoresis EENTM: No ear discharge, No ear pain Respiratory: No cough, No dyspnea on exertion Cardiovascular: No chest pain, No palpitations Gastrointestinal: No abdominal pain, No nausea, No vomiting Genitourinary: No discharge, No dysuria Musculoskeletal: see HPI, back pain; No joint pain Skin: No change in color, No lumps All Other Systems Reviewed Negative Unless Noted: Yes Past Sqqrzre-Nwbgxg-Zzwpai Hx Patient Social History Tobacco Use?: Yes Smoking Status: Current Everyday Smoker Substance use?: Yes Substance type: Marijuana Additional substance use comme: 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 Alcohol Use?: No Immunizations Up To Date Tetanus Booster (TDap): Unknown COVID19 Vaccine Core Cleaner: STATES HAS HAD 1 COVID VACCINE Seasonal Allergies Seasonal Allergies: No Past Medical History Surgeries: Yes (SPLEENECTOMY, HERNIA) Respiratory: No Cardiac: No Neurological: No Genitourinary: No Gastrointestinal: No Musculoskeletal: Yes Chronic Back Pain Endocrine: No HEENT: No Cancer: No Psychosocial: No Integumentary: No Blood Disorders: No Family Medical History No Pertinent Family Hx Physical Exam Vital Signs Vital Signs - First Documented 10/24/21 23:14 Temp 36.0 Pulse 93 Resp 16 B/P (MAP) 141/94 (110) Pulse Ox 98 O2 Delivery Room Air Capillary Refill : Less Than 3 Seconds Height, Weight, BMI Height: '" Weight: lbs. oz. kg; 28.00 BMI Method: General Appearance: WD/WN, Mild Distress HEENT: PERRL/EOMI, Pharynx Normal, Moist Mucous Membranes Neck: Full Range of Motion, Normal Inspection Cardiovascular: Regular Rate, Rhythm, Normal Peripheral Pulses Respiratory: Lungs Clear, Normal Breath Sounds, No Accessory Muscle Use, No Respiratory Distress Peripheral Pulses: 2+ Radial Pulses (R), 2+ Radial Pulses (L) Gastrointestinal: Normal Bowel Sounds, No Organomegaly, Non Tender, Soft Extremity: Normal Capillary Refill, Normal Inspection, Normal Range of Motion Neurologic/Psychiatric: Alert, Oriented x3, No Motor/Sensory Deficits Skin: Normal Color, Warm/Dry Progress/Results/Core Measures Results/Orders Lab Results Laboratory Tests Test 10/24/21 23:18 10/24/21 23:35 Range/Units White Blood Count 11.2 H 4.3-11.0 10^3/uL Red Blood Count 5.16 4.30-5.52 10^6/uL Hemoglobin 15.1 13.3-17.7 g/dL Hematocrit 46 40-54 % Mean Corpuscular Volume 89 80-99 fL Mean Corpuscular Hemoglobin 29 25-34 pg Mean Corpuscular Hemoglobin Concent 33 32-36 g/dL Red Cell Distribution Width 12.9 10.0-14.5 % Platelet Count 469 H 130-400 10^3/uL Mean Platelet Volume 9.9 9.0-12.2 fL Immature Granulocyte % (Auto) 1 % Neutrophils (%) (Auto) 64 42-75 % Lymphocytes (%) (Auto) 26 12-44 % Monocytes (%) (Auto) 9 0-12 % Eosinophils (%) (Auto) 1 0-10 % Basophils (%) (Auto) 0 0-10 % Neutrophils # (Auto) 7.1 1.8-7.8 10^3/uL Lymphocytes # (Auto) 2.9 1.0-4.0 10^3/uL Monocytes # (Auto) 1.0 0.0-1.0 10^3/uL Eosinophils # (Auto) 0.1 0.0-0.3 10^3/uL Basophils # (Auto) 0.1 0.0-0.1 10^3/uL Immature Granulocyte # (Auto) 0.1 0.0-0.1 10^3/uL Sodium Level 139 135-145 MMOL/L Potassium Level 4.1 3.6-5.0 MMOL/L Chloride Level 104 98-107 MMOL/L Carbon Dioxide Level 22 21-32 MMOL/L Anion Gap 13 5-14 MMOL/L Blood Urea Nitrogen 17 7-18 MG/DL Creatinine 1.23 0.60-1.30 MG/DL Estimat Glomerular Filtration Rate 69 BUN/Creatinine Ratio 14 Glucose Level 159 H 70-105 MG/DL Calcium Level 9.4 8.5-10.1 MG/DL Corrected Calcium 9.4 8.5-10.1 MG/DL Total Bilirubin 0.4 0.1-1.0 MG/DL Aspartate Amino Transf (AST/SGOT) 14 5-34 U/L Alanine Aminotransferase (ALT/SGPT) 20 0-55 U/L Alkaline Phosphatase 107 40-136 U/L Total Protein 8.0 6.4-8.2 GM/DL Albumin 4.0 3.2-4.5 GM/DL Urine Color YELLOW Urine Clarity CLEAR Urine pH 5.5 5-9 Urine Specific [place] >=1.030 1.016-1.022 Urine Protein 1+ H NEGATIVE Urine Glucose (UA) NEGATIVE NEGATIVE Urine Ketones TRACE H NEGATIVE Urine Nitrite NEGATIVE NEGATIVE Urine Bilirubin 1+ H NEGATIVE Urine Urobilinogen 1.0 < = 1.0 MG/DL Urine Leukocyte Esterase 1+ H NEGATIVE Urine RBC (Auto) 3+ H NEGATIVE Urine RBC 10-25 H /HPF Urine WBC 10-25 H /HPF Urine Squamous Epithelial Cells 0-2 /HPF Urine Crystals NONE /LPF Urine Bacteria MODERATE H /HPF Urine Casts NONE /LPF Urine Mucus LARGE H /LPF Urine Culture Indicated YES My Orders Orders - BARBARA REAGAN Ua Culture If Indicated (10/24/21 23:23) Cbc With Automated Diff (10/24/21 23:23) Comprehensive Metabolic Panel (10/24/21 23:23) Ed Iv/Invasive Line Start (10/24/21 23:23) Ns Iv 1000 Ml (Sodium Chloride 0.9%) (10/24/21 23:30) Ketorolac Injection (Toradol Injection) (10/24/21 23:30) Urine Culture (10/24/21 23:35) Ceftriaxone 1 Gm Pre-Mix (Rocephin 1 Gm (10/25/21 00:00) Ct Abd/Pelvis Wo(Kidney Stone) (10/25/21 00:01) Abdomen/Kub 1view (10/25/21 00:01) Medications Given in ED Current Medications Medications Dose Ordered Sig/Tiffanie Route Start Time Stop Time Status Last Admin Dose Admin Ceftriaxone Sodium/Dextrose 50 ml @ 100 mls/hr ONCE ONCE IV 10/25/21 00:00 10/25/21 00:29 DC 10/25/21 00:01 100 MLS/HR Ketorolac Tromethamine 30 mg ONCE ONCE IVP 10/24/21 23:30 10/24/21 23:31 DC 10/24/21 23:34 30 MG Vital Signs/I&O 10/24/21 23:14 Temp 36.0 Pulse 93 Resp 16 B/P (MAP) 141/94 (110) Pulse Ox 98 O2 Delivery Room Air Blood Pressure Mean: 110 Progress Progress Note : Time: 23:38 Progress Note Concern for ureteral calculus. Urinalysis has red and white blood cells so a gram of Rocephin IV was given in addition to fluids, Toradol. Patient is resting comfortably. Diagnostic Imaging Diagonstic Imaging: CT Plain Films/CT/US/NM/MRI: abdomen, pelvis Comments Small kidney stone seen near the trigone of the left bladder. [facility] [place], [place] NAME: LEXA WATK[facility] REC#: [id number] PT STATUS: REG ER : 1965 PHYSICIAN: BARBARA REAGAN MD ADMIT DATE: 10/24/21/ER Signed Date of Exam:10/25/21 CT ABD/PELVIS WO(KIDNEY STONE) PROCEDURE: CT urinary tract, rule out kidney stone. TECHNIQUE: Multiple contiguous axial images were obtained through the abdomen and pelvis without the use of intravenous contrast. Auto Exposure Controls were utilized during the CT exam to meet ALARA standards for radiation dose reduction. INDICATION: Left flank pain COMPARISON: 08/21/2019 Unenhanced images reveal previous splenectomy with suture along the lateral aspect of stomach. No focal hepatic or gallbladder abnormality is identified. Pancreas and adrenal glands are unremarkable. There is approximately 0.3 cm calculus in lower pole the right kidney. There is no right hydronephrosis. There is mild enlargement of the left renal collecting system and ureter without definite stone identified. There is, however, an approximately 0.2 cm calcification which appears to reside along the trigone to left of midline in the urinary bladder. This may represent stone at the ureterovesical junction or within the bladder lumen itself. There is no evidence of appendiceal inflammation. Mild degenerative findings are again noted in the lower lumbar spine. IMPRESSION: Stone at the ureteral vesicle junction or within the bladder lumen along the trigone measures 0.2 cm in size with mild left hydronephrosis and hydroureter. There is also nonobstructing right nephrolithiasis. Dictated by: Dictated on workstation # [id number] Dict: 10/25/21250 Trans: 10/25/21257 [id number] Interpreted by: NASIR TIJERINA MD Electronically signed by: NASIR TIJERINA MD 10/25/21257 Reviewed: Reviewed by Nh Diagonstic Imaging: Xray Plain Films/CT/US/NM/MRI: abdomen, pelvis Reviewed: Reviewed by Me Departure Impression Primary Impression: Ureteral calculus, left Disposition: 01 HOME, SELF-CARE Condition: Stable Departure-Patient Inst. Decision time for Depature: 02:30 Referrals: NO,LOCAL PHYSICIAN (PCP/Family) Primary Care Physician Patient Instructions: Kidney Stones (DC) Add. Discharge Instructions: Drink lots of fluids. Keflex 1 capsule twice a day to prevent urinary tract infection for a week. Flomax 1 capsule daily until the stone passes to help pass. Strain your urine to see if you catch the stone. Symptoms typically go away 1 to 2 days after the stone passes. Follow-up with Dr. Beverly, urology as necessary to help manage symptoms. Ondansetron 1 tablet every 6 hours as needed for nausea or vomiting. Hydrocodone 1 tablet every 6 hours as needed for severe pain. Tylenol 1000 mg every 8 hours as needed for pain. Ibuprofen 800 mg every 8 hours as needed for pain. All discharge instructions reviewed with patient and/or family. Voiced understanding. Scripts Cephalexin (Cephalexin) 500 Mg Tablet 500 MG PO BID for 7 Days, #14 TAB 0 Refills Prov: BARBARA REAGAN 10/25/21 Tamsulosin HCl (Flomax) 0.4 Mg Cap 0.4 MG PO DAILY for 7 Days, #7 CAP 0 Refills Prov: BARBARA REAGAN 10/25/21 Hydrocodone/Acetaminophen (Hydrocodone-Acetamin 5-325 mg) 5 Mg-325 Mg Tablet 1 TAB PO Q6H PRN for PAIN-MODERATE (5-7), #12 TAB 0 Refills Prov: BARBARA REAGAN 10/25/21 Ondansetron (Ondansetron Odt) 4 Mg Tab.rapdis 4 MG PO Q6H PRN for NAUSEA/VOMITING, #8 TAB 0 Refills Prov: BARBARA REAGAN 10/25/21 Work/School Note: Work Release Form Date Seen in the Emergency Department: Oct 25, 2021 Return to Work: Oct 27, 2021 Restrictions: No Restrictions BARBARA REAGAN Oct 24, 2021 23:38
[2021-10-24 23:40] LABS: BILIRUBIN,URINE 1+ (NEGATIVE); CLARITY,URINE CLEAR; COLOR,URINE YELLOW; GLUCOSE, URINE (UA) NEGATIVE (NEGATIVE); KETONES,URINE TRACE (NEGATIVE); LEUKOCYTE ESTERASE ,URINE 1+ (NEGATIVE); NITRITE,URINE NEGATIVE (NEGATIVE); PH,URINE 5.5 (5-9); PROTEIN,URINE 1+ (NEGATIVE)
[2021-10-24 23:41] LABS: BILIRUBIN,TOTAL 0.4 MG/DL (0.1-1.0)
[2021-10-24 23:43] LABS: CREATININE SERUM 1.23 MG/DL (0.60-1.30)
[2021-10-24 23:50] LABS: BACTERIA,URINE MODERATE /HPF; SQUAMOUS EPITHELIAL CELL,UR 0-2 /HPF
[2021-10-25] MEDS ORDERED: cefTRIAXone 1 GM PRE-MIX 50 ML IV ONE
[2021-10-25] MEDS ORDERED: CEPH500T PO (02:26)
[2021-10-25] MEDS ORDERED: ACHD5005 PO (02:26)
[2021-10-25] MEDS ORDERED: TMSL.4C PO (02:26)
[2021-10-25] MEDS ORDERED: ONDA4TAB11 PO (02:26)
--- NOTE | 2021-10-25 03:00 | Diagnostic Imaging Report ---
PROCEDURE: CT urinary tract, rule out kidney stone. TECHNIQUE: Multiple contiguous axial images were obtained through the abdomen and pelvis without the use of intravenous contrast. Auto Exposure Controls were utilized during the CT exam to meet ALARA standards for radiation dose reduction. INDICATION: Left flank pain COMPARISON: 08/21/2019 Unenhanced images reveal previous splenectomy with suture along the lateral aspect of stomach. No focal hepatic or gallbladder abnormality is identified. Pancreas and adrenal glands are unremarkable. There is approximately 0.3 cm calculus in lower pole the right kidney. There is no right hydronephrosis. There is mild enlargement of the left renal collecting system and ureter without definite stone identified. There is, however, an approximately 0.2 cm calcification which appears to reside along the trigone to left of midline in the urinary bladder. This may represent stone at the ureterovesical junction or within the bladder lumen itself. There is no evidence of appendiceal inflammation. Mild degenerative findings are again noted in the lower lumbar spine. IMPRESSION: Stone at the ureteral vesicle junction or within the bladder lumen along the trigone measures 0.2 cm in size with mild left hydronephrosis and hydroureter. There is also nonobstructing right nephrolithiasis. Dictated by: Dictated on workstation # [id number]
[2021-10-25 03:10] VITALS: BP 137/95
--- NOTE | 2021-10-25 07:18 | Diagnostic Imaging Report ---
ABDOMEN/KUB 1VIEW INDICATION: Left-sided hydronephrosis. Ureteral stone COMPARISON: CT abdomen and pelvis from earlier same day. TECHNIQUE: AP view of the abdomen FINDINGS: There are 2 adjacent pelvic phleboliths on the left side. Patient's stone at the UVJ is not radiographically apparent. Right-sided pelvic phlebolith is also noted. Nonobstructive bowel gas pattern. Lung bases are clear. Stable regional skeleton. IMPRESSION: 1. The 2 mm stone at the left UVJ is not radiographically apparent. Dictated by: Dictated on workstation # [id number]
== END 2021-10-25 03:14 | disposition home or self-care (01) ==
LOC: EDUNIT# 23:12 → ER 23:14
DX: N13.2 Hydronephrosis with renal and ureteral calculous obstruction (principal); F17.200 Nicotine dependence, unspecified, uncomplicated; Z86.16 Personal history of COVID-19; Z28.310 Unvaccinated for COVID-19
CPT/HCPCS: 36415; 74018; 74176; 80053; 81000; 85025; 87088